=== PATIENT | male | born 1955 | race African-American/Black ===

== ENCOUNTER 2017-10-20 14:54 | Inpatient (IN) ==
--- NOTE | 2017-10-20 15:29 | ED ---
HPI General Chief complaint: Weakness Stated complaint: Medical Time Seen by Provider: 10/20/17 14:58 Source: EMS Mode of arrival: EMS History of Present Illness HPI narrative: Patient is a 62-year-old male who presents the emergency room [facility]) for evaluation of hypoglycemia. EMS reports that they were called to patient's house as patient had a hypoglycemic event yesterday. When patient becomes hypoglycemic, he becomes combative. When EMS arrived on scene yesterday, patient's blood sugar was 20, he was given glucose and his blood sugar improved. Reports that they are called on scene today as patient was combative, patient was found to have a blood sugar of 40. Patient was given amp of D10, blood sugar now 212. Patient reports that he is currently taking insulin, patient reports that he takes 2 types of insulin, patient cannot provide any further information. Patient with no other complaints at this time. Patient's family at bedside, reports that she takes 80 Units of Lantus nightly - he does have a script for SSI - does not use it Related Data Home Medications Medication Instructions Recorded Confirmed aspirin 81 mg PO DAILY 10/20/17 10/20/17 atorvastatin [Lipitor] 10 mg PO DAILY 10/20/17 10/20/17 enalapril maleate 5 mg PO DAILY 10/20/17 10/20/17 hydrochlorothiazide 50 mg PO DAILY 10/20/17 10/20/17 insulin glargine [Lantus U-100 80 unit SUB-Q HS 10/20/17 10/20/17 Insulin] metoprolol tartrate 50 mg PO DAILY 10/20/17 10/20/17 potassium chloride 10 meq PO DAILY 10/20/17 10/20/17 Allergies Allergy/AdvReac Type Severity Reaction Status Date / Time No Known Allergies Allergy Unverified 10/01/17 08:49 Review of Systems ROS: all other systems reviewed are negative [facility] Medical History Medical History Diabetes (Acute) Hypertension (Acute) Hypercholesterolemia (Acute) Stroke (Acute) Surgical History Surgical History No history of previous surgery (Acute) Social History Social History Substance History: No History of Abuse Second Hand Smoke Exposure: No Smoking Status: Former smoker How Often Do You Have a Drink Containing Alcohol: Never Recent Travel in [facility] within the Last 8 Weeks: No Recent Out of Country Travel within the Last 8 Weeks: No Exam Narrative Exam Narrative: GENERAL: NAD SKIN: Focused skin assessment warm/dry. HEAD: Atraumatic. Normocephalic. EYES: Pupils equal and round. No scleral icterus. No injection or drainage. ENT: No nasal bleeding or discharge. Mucous membranes pink and moist. NECK: Trachea midline. No JVD. CARDIOVASCULAR: Regular rate and rhythm. No murmur appreciated. RESPIRATORY: No accessory muscle use. Clear to auscultation. Breath sounds equal bilaterally. GASTROINTESTINAL: Abdomen soft, non-tender, nondistended. Hepatic and splenic margins not palpable. MUSCULOSKELETAL: No obvious deformities. No clubbing. No cyanosis. No edema. NEUROLOGICAL: Awake and alert. No obvious cranial nerve deficits. Motor grossly within normal limits. Normal speech. PSYCHIATRIC: Appropriate mood and affect; insight and judgment normal. Course Initial Documented Vital Signs Temperature 99.0 F 10/20/17 15:14 Pulse Rate 80 10/20/17 15:14 Respiratory Rate 16 10/20/17 15:14 Blood Pressure 163/83 H 10/20/17 15:14 Pulse Oximetry 99 10/20/17 15:14 Last Documented Vital Signs Temperature 99.0 F 10/20/17 15:14 Pulse Rate 96 H 10/20/17 17:50 Respiratory Rate 20 10/20/17 17:50 Blood Pressure 174/81 H 10/20/17 17:50 Pulse Oximetry 98 10/20/17 17:50 Medical Decision Making [facility] Narrative Medical decision making narrative: During the course of the patients emergency department visit, the patients history, examination, and differential diagnosis were reviewed with the patient. The patient was placed on a hospital monitor with oximetry and frequent blood pressure monitoring. The patient had an IV access obtained and blood work sent for analysis. BS now 100 It is concerning that patient administers his own insulin as patient cannot tell me his medication list or when he administers his medications. Overall, patient is a poor historian. patient BS on BMP is 442, now at 535pm - bp is 50 - I did order and amp of D50 Patient's potassium is 2.3 - iv as well as po potassium ordered Patient will require admission Case reviewed with Dr. Ramirez who accepts pt to his service for admission Medical Screen Exam Complete: Yes Emergency Medical Condition: Yes Differential Diagnosis Differential Diagnosis: Medication overdose, electrolyte abnormality, infection Medical Records Medical records reviewed: Yes I reviewed the patient's medical records. Lab Data Result diagrams: 10/20/17 15:45 10/20/17 15:45 Lab Results 10/20/17 10/20/17 10/20/17 Range/Units 15:45 15:45 17:34 WBC 16.0 H (4.0-11.0) th/mm3 RBC 4.63 (4.50-5.90) mil/mm3 Hgb 14.4 (13.0-17.0) gm/dL Hct 42.0 (39.0-51.0) % MCV 90.8 (80.0-100.0) fL MCH 31.1 (27.0-34.0) pg MCHC 34.2 (32.0-36.0) % RDW 14.2 (11.6-17.2) % Plt Count 164 (150-450) th/mm3 MPV 9.0 (7.0-11.0) fL Neut % (Auto) 91.5 H (16.0-70.0) % Lymph % (Auto) 4.2 L (9.0-44.0) % Kendall % (Auto) 4.2 (0.0-8.0) % Eos % (Auto) 0.0 (0.0-4.0) % Baso % (Auto) 0.1 (0.0-2.0) % Neut # (Auto) 14.6 H (1.8-7.7) th/mm3 Lymph # (Auto) 0.7 L (1.0-4.8) th/mm3 Kendall # (Auto) 0.7 (0.0-0.9) th/mm3 Eos # (Auto) 0.0 (0.0-0.4) th/mm3 Baso # (Auto) 0.0 (0.0-0.2) th/mm3 WBC Differential . Differential Comment Auto diff final Sodium 142 (136-145) meq/L Potassium 2.3 L* (3.5-5.1) meq/L Chloride 107 (98-107) meq/L Carbon Dioxide 25.7 (21.0-32.0) meq/L Anion Gap 9 (5-15) meq/L BUN 13 (7-18) mg/dL Creatinine 0.90 (0.60-1.30) mg/dL Estimated GFR Greater than 89 (>89) mL/min POC Glucose 50 L (68-110) mg/dl Random Glucose 442 H (74-106) mg/dL Calcium 6.1 L* (8.5-10.1) mg/dL Prot Corrected Calcium 7.0 L* (8.5-10.1) mg/dL Total Bilirubin 1.7 H (0.2-1.0) mg/dL AST 139 H (15-37) U/L ALT 28 (12-78) U/L Alkaline Phosphatase 48 (45-117) U/L Total Protein 5.2 L (6.4-8.2) g/dL Albumin 2.5 L (3.4-5.0) g/dL Beta-Hydroxybutyric Acd 0.16 (0.00-0.39) mmol/L 10/20/17 Range/Units 17:41 WBC (4.0-11.0) th/mm3 RBC (4.50-5.90) mil/mm3 Hgb (13.0-17.0) gm/dL Hct (39.0-51.0) % MCV (80.0-100.0) fL MCH (27.0-34.0) pg MCHC (32.0-36.0) % RDW (11.6-17.2) % Plt Count (150-450) th/mm3 MPV (7.0-11.0) fL Neut % (Auto) (16.0-70.0) % Lymph % (Auto) (9.0-44.0) % Kendall % (Auto) (0.0-8.0) % Eos % (Auto) (0.0-4.0) % Baso % (Auto) (0.0-2.0) % Neut # (Auto) (1.8-7.7) th/mm3 Lymph # (Auto) (1.0-4.8) th/mm3 Kendall # (Auto) (0.0-0.9) th/mm3 Eos # (Auto) (0.0-0.4) th/mm3 Baso # (Auto) (0.0-0.2) th/mm3 WBC Differential Differential Comment Sodium (136-145) meq/L Potassium (3.5-5.1) meq/L Chloride (98-107) meq/L Carbon Dioxide (21.0-32.0) meq/L Anion Gap (5-15) meq/L BUN (7-18) mg/dL Creatinine (0.60-1.30) mg/dL Estimated GFR (>89) mL/min POC Glucose 54 L (68-110) mg/dl Random Glucose (74-106) mg/dL Calcium (8.5-10.1) mg/dL Prot Corrected Calcium (8.5-10.1) mg/dL Total Bilirubin (0.2-1.0) mg/dL AST (15-37) U/L ALT (12-78) U/L Alkaline Phosphatase (45-117) U/L Total Protein (6.4-8.2) g/dL Albumin (3.4-5.0) g/dL Beta-Hydroxybutyric Acd (0.00-0.39) mmol/L Imaging Data Radiologist's impression: Head CT 10/20/17 15:59 CONCLUSION: 1. Large area of old left-sided infarct involving the left parietal lobe with Wallerian degeneration present within the temporal lobe and left cerebral peduncle. No acute abnormality is seen. . Discharge Plan Discharge Disposition Patient Disposition: 30 Still Patient Discharge Condition Condition: Fair Discharge Details Diagnosis: Hypoglycemia, Acute hypokalemia Physicians Team ED Provider: Sandra Ferguson Primary Care Provider: Victorina Velazquez Rxs /Orders / Referrals /Forms Prescriptions: No Action insulin glargine [Lantus U-100 Insulin] 100 unit/mL Solution 80 unit SUB-Q HS RF: 0 enalapril maleate 5 mg Tablet 5 mg PO DAILY RF: 0 atorvastatin [Lipitor] 10 mg Tablet 10 mg PO DAILY RF: 0 hydrochlorothiazide 50 mg Tablet 50 mg PO DAILY RF: 0 potassium chloride 10 mEq Tablet Extended Release 10 meq PO DAILY RF: 0 metoprolol tartrate 50 mg Tablet 50 mg PO DAILY RF: 0 aspirin 81 mg Tablet,Chewable 81 mg PO DAILY RF: 0 Status ED Status: With Doctor
[2017-10-20 16:35] LABS: Baso % (Auto) 0.1 % (0.0-2.0); Hemoglobin 14.4 gm/dL (13.0-17.0); Lymph # (Auto) 0.7 th/mm3 (1.0-4.8); Lymph % (Auto) 4.2 % (9.0-44.0); Mean Corpuscular HGB Conc 34.2 % (32.0-36.0); Mean Corpuscular Hemoglobin 31.1 pg (27.0-34.0); Mean Corpuscular Volume 90.8 fL (80.0-100.0); Mono # (Auto) 0.7 th/mm3 (0.0-0.9); Mono % (Auto) 4.2 % (0.0-8.0); Neut # (Auto) 14.6 th/mm3 (1.8-7.7); Neut % (Auto) 91.5 % (16.0-70.0); Platelet Count 164 th/mm3 (150-450); Red Blood Count 4.63 mil/mm3 (4.50-5.90); Red Cell Distribution Width 14.2 % (11.6-17.2)
--- NOTE | 2017-10-20 16:58 | CT ---
EXAM DATE: 10/20/2017 4:53 PM EDT AGE/SEX: 62 years / Male INDICATIONS: Altered mental status. CLINICAL DATA: This is the patient's initial encounter. Patient reports that signs and symptoms have been present for 1 day and indicates a pain score of Nonresponsive. MEDICAL/SURGICAL HISTORY: Diabetes. Hypertension. None. RADIATION DOSE: 56.35 CTDI (mGy) COMPARISON: No prior exams available for comparison. TECHNIQUE: CT of the head without contrast. Using automated exposure control and adjustment of the mA and/or kV according to patient size, radiation dose was kept as low as reasonably achievable to ob tain optimal diagnostic quality images. DICOM format image data is available electronically for revi ew and comparison. FINDINGS: Cerebrum: There is a large area of encephalomalacia involving the left parietal lobe and left insula with asymmetric dilation of the left lateral ventricle. The peripheral lizarraga matter appears intact. Posterior Fossa: There is wallerian degeneration involving the left temporal lobe and left cerebral peduncle. No evidence of acute abnormality within the posterior fossa. Extracranial: The visualized portion of the orbits is intact. Skull: The calvaria is intact. No evidence of skull fracture. CONCLUSION: 1. Large area of old left-sided infarct involving the left parietal lobe with Wallerian degeneration present within the temporal lobe and left cerebral peduncle. No acute abnormality is seen. . Electronically signed by: Gifty Horowitz MD 10/20/2017 4:57 PM EDT
[2017-10-20 17:24] LABS: Alanine Aminotransferase 28 U/L (12-78); Albumin 2.5 g/dL (3.4-5.0); Alkaline Phosphatase 48 U/L (45-117); Anion Gap 9 meq/L (5-15); Aspartate Aminotransferase 139 U/L (15-37); Beta Hydroxybutyric Acid 0.16 mmol/L (0.00-0.39); Blood Urea Nitrogen 13 mg/dL (7-18); Calcium 6.1 mg/dL (8.5-10.1); Carbon Dioxide 25.7 meq/L (21.0-32.0); Chloride 107 meq/L (98-107); Glomerular Filtration Rate Greater Than 89 mL/min (>89); Sodium 142 meq/L (136-145); Total Protein 5.2 g/dL (6.4-8.2)
[2017-10-20 17:29] LABS: Glucose,Random 442 mg/dL (74-106); Potassium 2.3 meq/L (3.5-5.1)
[2017-10-20] MEDS ORDERED: Potassium Chlor 20 mEq Premix 20 MEQ/100 ML PIGGYBACK IV.SIG ONE (17:30)
[2017-10-20] MEDS ORDERED: Dextrose 50% in Water 50 ML Vial IV.PUSH ONE (17:34)
[2017-10-20] MEDS ORDERED: KCL 20 mEq/D5W/NaCl 0.45% Inj 1,000 ML IV.CONT SCH (18:00)
[2017-10-20] MEDS ORDERED: Dextrose 50% in Water 50 ML Vial IV.PUSH PRN (18:13)
--- NOTE | 2017-10-20 18:17 | P.HPIM ---
History of Present Illness Primary Care Physician: Victorina Velazquez MD History of Present Illness: Mr. Russell is a 62 year old male. She has a history of diabetes mellitus type 2. She also has hypertension, hyperlipidemia, and a past history of CVA. At baseline he may have some degree of dementia. He has a friend who helps doses Lantus. He has had a previous hypoglycemic episode recently and has a repeat hypoglycemic episode today. Overdose of Lantus is a suspected etiology. It is uncertain how much Lantus this patient is getting. He is listed to have 80 units subcutaneous daily. Patient is unable to provide any clear history at this point. He is alert and oriented 1, etiology for this could be an underlying dementia or encephalopathy related to previous hyperglycemia that is lingering. Blood sugars are measured in the 40s today by EMS and had previously been as low as the 20s on previous episodes. - Diagnosis (1) Hypoglycemia (2) Acute hypokalemia (3) Diabetes (4) Hypertension Review of Systems Constitutional: No fevers, no chills no night sweats, no fatigue, weakness Eyes: No eye pain, no blurry vision, no loss of vision ENT: No sore throat, no ear pain, no rhinorrhea Cardiovascular: No chest pain, no tachycardia, no palpitations, no shortness of breath, syncope (related to hypoglycemia) Respiratory: No wheezing, no cough, no shortness of breath Gastrointestinal: No abdominal pain, no black tarry stools, no bright red blood per rectum, no vomiting, no diarrhea Musculoskeletal: No joint pain, no muscle cramps, no stiffness Integumentary: No rash, no ulcers, no drainage Neurologic: No sensory loss, no loss of motor function, no dizziness Psychiatric: No behavioral changes, no hallucinations, no suicidal ideations [facility] - History History Provided By: Patient - Medical History Medical History: Medical History (Last Updated 10/20/17 @ 15:29 by Loyda Spear) Diabetes (Acute) Hypertension (Acute) Hypercholesterolemia Stroke - Surgical History Surgical History: Surgical History (Last Reviewed 10/20/17 @ 15:27 by Sandra Ferguson) No history of previous surgery (Acute) - Family History Family History: Family History (Last Updated 10/20/17 @ 18:04 by Severo Ramirez MD) Other Osteoarthritis - Tobacco History Second Hand Smoke Exposure: No Smoking Status: Former smoker - Alcohol History How Often Do You Have a Drink Containing Alcohol: Never - Substance Use History Substance History: No History of Abuse - Travel History Recent Travel in the [place] Within the Last 8 Weeks: No Recent Travel Out of the Country Within the Last 8 Weeks: No - Immunization History Tetanus Immunization: Unsure Medications and Allergies Active Medications: Active Medications Al Hydroxide/Mg Hydroxide (Milk Of Magnradha Liq) 30 ml PO Q12H PRN PRN Reason: Mild Constipation Potassium Chloride (Kcl 20 Meq Premix Inj) 20 meq in 100 mls @ 50 mls/hr IV.SIG ONCE ONE Stop: 10/20/17 19:29 Potassium Chloride/Dextrose/Sod Cl (D5w/1/2ns + Kcl 20 Meq Inj) 1,000 mls @ 30 mls/hr IV.CONT .Q24H SOLO Ondansetron HCl (Zofran Inj) 4 mg IV.PUSH Q6H PRN PRN Reason: NAUSEA OR VOMITING Sodium Chloride (Ns Flush) 2 ml IV.FLUSH PRN PRN PRN Reason: FLUSH AFTER USING IV ACCESS Last Admin: 10/20/17 17:46 Dose: 2 ml Allergies Allergy/AdvReac Type Severity Reaction Status Date / Time No Known Allergies Allergy Unverified 10/01/17 08:49 Home Medications Medication Instructions Recorded Confirmed Type aspirin 81 mg PO DAILY 10/20/17 10/20/17 History atorvastatin [Lipitor] 10 mg PO DAILY 10/20/17 10/20/17 History enalapril maleate 5 mg PO DAILY 10/20/17 10/20/17 History hydrochlorothiazide 50 mg PO DAILY 10/20/17 10/20/17 History insulin glargine [Lantus U-100 80 unit SUB-Q HS 10/20/17 10/20/17 History Insulin] metoprolol tartrate 50 mg PO DAILY 10/20/17 10/20/17 History potassium chloride 10 meq PO DAILY 10/20/17 10/20/17 History Exam Vital signs: Vital Signs 10/20/17 15:14 10/20/17 15:17 10/20/17 15:29 Temperature 99.0 F Pulse Rate 80 76 77 Respiratory Rate 16 16 Blood Pressure 163/83 H 168/82 H Pulse Oximetry 99 100 10/20/17 17:50 Temperature Pulse Rate 96 H Respiratory Rate 20 Blood Pressure 174/81 H Pulse Oximetry 98 Intake & Output 10/19/17 10/20/17 10/20/17 18:59 06:59 18:59 Weight 81.647 kg Narrative: GENERAL: NAD, A&Ox1 HEAD: Normocephalic. NECK: Supple, trachea midline. No lymphadenopathy. EYES: No scleral icterus. No injection or drainage. CARDIOVASCULAR: Regular rate and rhythm without murmurs, gallops, or rubs. RESPIRATORY: Breath sounds equal bilaterally. No accessory muscle use. GASTROINTESTINAL: Abdomen soft, non-tender, nondistended. MUSCULOSKELETAL: No cyanosis, or edema. SKIN: Warm and dry. NEURO: No focal neurological deficits. Results - Labs CBC & Chem 7: 10/20/17 15:45 10/20/17 15:45 Labs: Short CBC 10/20/17 Range/Units 15:45 WBC 16.0 H (4.0-11.0) th/mm3 Hgb 14.4 (13.0-17.0) gm/dL Hct 42.0 (39.0-51.0) % Plt Count 164 (150-450) th/mm3 BMP 10/20/17 15:45 Sodium 142 Potassium 2.3 L* Chloride 107 Carbon Dioxide 25.7 BUN 13 Creatinine 0.90 Calcium 6.1 L* Liver Function 10/20/17 Range/Units 15:45 Total Bilirubin 1.7 H (0.2-1.0) mg/dL AST 139 H (15-37) U/L ALT 28 (12-78) U/L Alkaline Phosphatase 48 (45-117) U/L Albumin 2.5 L (3.4-5.0) g/dL - Imaging Impressions Head CT 10/20/17 15:59 CONCLUSION: 1. Large area of old left-sided infarct involving the left parietal lobe with Wallerian degeneration present within the temporal lobe and left cerebral peduncle. No acute abnormality is seen. . Caprini VTE Risk Assessment Caprini VTE Risk Assessment: No/Low Risk (score <= 1) Caprini Risk Assessment Model: Point Value = 1 Point Value = 2 Point Value = 3 Point Value = 5 Age 41-60 Minor surgery BMI > 25 kg/m2 Swollen legs Varicose veins or History of unexplained or recurrent spontaneous Oral contraceptives or hormone replacement Sepsis (< 1 month) Serious lung disease, including pneumonia (< 1 month) Abnormal pulmonary function Acute myocardial infarction Congestive heart failure (< 1 month) History of inflammatory bowel disease Medical patient at bed rest Age 61-74 Arthroscopic surgery Major open surgery (> 45 min) Laparoscopic surgery (> 45 min) Malignancy Confined to bed (> 72 hours) Immobilizing plaster cast Central venous access Age >= 75 History of VTE Family history of VTE Factor V Leiden Prothrombin [id number] Lupus anticoagulant Anticardiolipin antibodies Elevated serum homocysteine Heparin-induced thrombocytopenia Other congenital or acquired thrombophilia Stroke (< 1 month) Elective arthroplasty Hip, pelvis, or leg fracture Acute spinal cord injury (< 1 month) Prophylaxis Regimen: Total Risk Factor Score Risk Level Prophylaxis Regimen 0-1 Low Early ambulation 2 Moderate Order ONE of the following: *Sequential Compression Device (SCD) *Heparin 5000 units SQ BID 3-4 Higher Order ONE of the following medications: *Heparin 5000 units SQ TID *Enoxaparin/Lovenox 40 mg SQ daily (WT < 150 kg, CrCl > 30 mL/min) *Enoxaparin/Lovenox 30 mg SQ daily (WT < 150 kg, CrCl > 10-29 mL/min) *Enoxaparin/Lovenox 30 mg SQ BID (WT < 150 kg, CrCl > 30 mL/min) AND/OR *Sequential Compression Device (SCD) 5 or more Highest Order ONE of the following medications: *Heparin 5000 units SQ TID (Preferred with Epidurals) *Enoxaparin/Lovenox 40 mg SQ daily (WT < 150 kg, CrCl > 30 mL/min) *Enoxaparin/Lovenox 30 mg SQ daily (WT < 150 kg, CrCl > 10-29 mL/min) *Enoxaparin/Lovenox 30 mg SQ BID (WT < 150 kg, CrCl > 30 mL/min) AND *Sequential Compression Device (SCD) Assessment and Plan - Assessment (1) Hypoglycemia Code(s): E16.2 - Hypoglycemia, unspecified Status: Acute (2) Acute hypokalemia Code(s): E87.6 - Hypokalemia Status: Acute (3) Diabetes Code(s): E11.9 - Type 2 diabetes mellitus without complications Status: Acute (4) Hypertension Code(s): I10 - Essential (primary) hypertension Status: Acute - Plan 62-year-old male admitted secondary to hypoglycemia with acute hypokalemia Acute hypoglycemia This appears to be overdosed Lantus Once blood sugars stabilize Lantus could be resumed with a 25-50% cut from his baseline of 80 units nightly D5 IV overnight Follow blood sugars Resume treatment at lower doses once blood sugars stabilize Encephalopathy Possible underlying dementia Placement may be needed if not improved Supportive care Monitor for improvement Hypertension Continue baseline treatment Follow blood pressures Adjust treatments as needed Hyperlipidemia Continue present treatment Follow as an outpatient Diabetes mellitus type 2 Follow blood sugars Insulin sliding scale Diabetic diet Hx of CVA No acute changes follow clinically DVT Prophylaxis SCDs
[2017-10-20 18:28] LABS: Bilirubin,Urine Negative (Negative); Clarity,Urine Hazy (Clear); Color,Urine Yellow (Yellw/Straw); Glucose,Urine (UA) 50 mg/dL (Negative); Leukocyte Esterase,Urine Negative (Negative); Nitrite,Urine Negative (Negative); Specific Gravity,Urine 1.024 (1.002-1.035)
--- NOTE | 2017-10-20 18:32 | XR ---
EXAM DATE: 10/20/2017 6:29 PM EDT AGE/SEX: 62 years / Male INDICATIONS: Syncope. CLINICAL DATA: This is the patient's initial encounter. Patient reports that signs and symptoms have been present for 1 day and indicates a pain score of 0/10. MEDICAL/SURGICAL HISTORY: Stroke. Diabetes. Hypertension. None. COMPARISON: No prior exams available for comparison. FINDINGS: A single AP view of the chest demonstrates the lungs to be symmetrically aerated without evidence of mass, infiltrate or effusion. The cardiomediastinal contours are unremarkable. There is elevation o f the right hemidiaphragm. Osseous structures are intact. CONCLUSION: 1. No acute cardiopulmonary disease. 2. Elevation of the right hemidiaphragm. Electronically signed by: Bishop Andrew MD 10/20/2017 6:31 PM EDT
[2017-10-21] MEDS: Insulin NovoLOG Aspart Correctional Sugar Inj SQ SCH ×5 (02:48→21:01)
[2017-10-21] MEDS: Metoprolol Tartrate 50 MG Tablet PO SCH (09:30)
[2017-10-21 10:17] LABS: Baso % (Auto) 0.1 % (0.0-2.0); Eos % (Auto) 0.3 % (0.0-4.0); Hematocrit 42.3 % (39.0-51.0); Hemoglobin 14.5 gm/dL (13.0-17.0); Lymph # (Auto) 0.9 th/mm3 (1.0-4.8); Lymph % (Auto) 6.4 % (9.0-44.0); Mean Corpuscular HGB Conc 34.2 % (32.0-36.0); Mean Corpuscular Hemoglobin 31.1 pg (27.0-34.0); Mono # (Auto) 0.8 th/mm3 (0.0-0.9); Mono % (Auto) 5.6 % (0.0-8.0); Neut % (Auto) 87.6 % (16.0-70.0); Platelet Count 166 th/mm3 (150-450); Red Blood Count 4.65 mil/mm3 (4.50-5.90); Red Cell Distribution Width 14.3 % (11.6-17.2); White Blood Count 14.8 th/mm3 (4.0-11.0)
--- NOTE | 2017-10-21 10:29 | P.PN ---
Subjective Interval history: Follow-up for hypoglycemia: Patient awake, alert and oriented 2, expressive aphasia, history of CVA. Patient is unclear about his medications, indicates that someone assist him at home. Denies any chest pain, no shortness of breath. Blood sugars have improved overnight, lowest one was 40 most recent 127. Patient on D5 with potassium. Physical Exam Vital signs: Vital Signs 10/20/17 15:14 10/20/17 15:17 10/20/17 15:29 Temperature 99.0 F Pulse Rate 80 76 77 Respiratory Rate 16 16 Blood Pressure 163/83 H 168/82 H Pulse Oximetry 99 100 10/20/17 17:50 10/20/17 19:34 10/20/17 20:00 Temperature 98.4 F 98.4 F Pulse Rate 96 H 75 86 Respiratory Rate 20 20 20 Blood Pressure 174/81 H 187/87 H 179/101 H Pulse Oximetry 98 100 95 10/20/17 21:00 10/20/17 23:35 10/21/17 07:01 Temperature 98.1 F Pulse Rate 79 85 89 Respiratory Rate 20 Blood Pressure 167/88 H Pulse Oximetry 100 10/21/17 08:35 Temperature 98.2 F Pulse Rate 91 H Respiratory Rate 18 Blood Pressure 172/88 H Pulse Oximetry 97 Intake & Output 10/20/17 10/21/17 10/21/17 18:59 06:59 18:59 Intake Total 600 / 600 Balance 600 / 600 Weight 81.647 kg Intake: Oral 600 / 600 Other: # Voids 2 Weight On Admission 81.647 kg Narrative: GENERAL: Well-nourished, well-developed patient in no apparent distress. SKIN: Warm and dry. HEAD: Atraumatic. Normocephalic. EYES: Pupils equal and round. No scleral icterus. No injection or drainage. ENT: No nasal bleeding or discharge. Mucous membranes pink and moist. NECK: Trachea midline. No JVD. CARDIOVASCULAR: Regular rate and rhythm. RESPIRATORY: No accessory muscle use. Clear to auscultation. Breath sounds equal bilaterally. GASTROINTESTINAL: Abdomen soft, non-tender, nondistended. Hepatic and splenic margins not palpable. MUSCULOSKELETAL: Right wrist contracted. Right upper extremity hemiparesis from prior stroke. No joint abnormality. Bilateral pedal pulses 2+, no edema. NEUROLOGICAL: Awake, oriented to self and place. Expressive aphasia, speech mildly dysarthric. History of stroke. Right upper extremity hemiparesis. PSYCHIATRIC: Appropriate mood and affect; insight and judgment normal. Results - Labs CBC & Chem 7: 10/21/17 08:43 10/21/17 08:43 Laboratory Results - last 24 hr 10/20/17 10/20/17 10/20/17 15:45 15:45 17:34 WBC 16.0 H RBC 4.63 Hgb 14.4 Hct 42.0 MCV 90.8 MCH 31.1 MCHC 34.2 RDW 14.2 Plt Count 164 MPV 9.0 Neut % (Auto) 91.5 H Lymph % (Auto) 4.2 L Hayes % (Auto) 4.2 Eos % (Auto) 0.0 Baso % (Auto) 0.1 Neut # (Auto) 14.6 H Lymph # (Auto) 0.7 L Hayes # (Auto) 0.7 Eos # (Auto) 0.0 Baso # (Auto) 0.0 WBC Differential . Differential Comment Auto diff final Sodium 142 Potassium 2.3 L* Chloride 107 Carbon Dioxide 25.7 Anion Gap 9 BUN 13 Creatinine 0.90 Estimated GFR Greater than 89 POC Glucose 50 L Random Glucose 442 H Calcium 6.1 L* Prot Corrected Calcium 7.0 L* Total Bilirubin 1.7 H AST 139 H ALT 28 Alkaline Phosphatase 48 Total Protein 5.2 L Albumin 2.5 L Beta-Hydroxybutyric Acd 0.16 Urine Color Urine Clarity Urine pH Ur Specific [place] Urine Protein Urine Glucose (UA) Urine Ketones Urine Occult Blood Urine Nitrate Urine Bilirubin Urine Urobilinogen Ur Leukocyte Esterase Urine RBC Urine WBC Granular Casts Micro UA Comment Ur Microscopic Review Urine Culture Comments 10/20/17 10/20/17 10/20/17 17:40 17:41 18:29 WBC RBC Hgb Hct MCV MCH MCHC RDW Plt Count MPV Neut % (Auto) Lymph % (Auto) Hayes % (Auto) Eos % (Auto) Baso % (Auto) Neut # (Auto) Lymph # (Auto) Hayes # (Auto) Eos # (Auto) Baso # (Auto) WBC Differential Differential Comment Sodium Potassium Chloride Carbon Dioxide Anion Gap BUN Creatinine Estimated GFR POC Glucose 54 L 108 Random Glucose Calcium Prot Corrected Calcium Total Bilirubin AST ALT Alkaline Phosphatase Total Protein Albumin Beta-Hydroxybutyric Acd Urine Color Yellow Urine Clarity Hazy H Urine pH 5.0 Ur Specific [place] 1.024 Urine Protein 100 H Urine Glucose (UA) 50 Urine Ketones Trace H Urine Occult Blood Large H Urine Nitrate Negative Urine Bilirubin Negative Urine Urobilinogen 2.0 H Ur Leukocyte Esterase Negative Urine RBC 1 Urine WBC 5 Granular Casts 12 Micro UA Comment Culture not ind Ur Microscopic Review Not Reportable Urine Culture Comments Culture not ind 10/20/17 10/20/17 10/20/17 21:17 21:28 22:10 WBC RBC Hgb Hct MCV MCH MCHC RDW Plt Count MPV Neut % (Auto) Lymph % (Auto) Hayes % (Auto) Eos % (Auto) Baso % (Auto) Neut # (Auto) Lymph # (Auto) Hayes # (Auto) Eos # (Auto) Baso # (Auto) WBC Differential Differential Comment Sodium Potassium 3.1 L D Chloride Carbon Dioxide Anion Gap BUN Creatinine Estimated GFR POC Glucose 40 L* 95 Random Glucose Calcium Prot Corrected Calcium Total Bilirubin AST ALT Alkaline Phosphatase Total Protein Albumin Beta-Hydroxybutyric Acd Urine Color Urine Clarity Urine pH Ur Specific [place] Urine Protein Urine Glucose (UA) Urine Ketones Urine Occult Blood Urine Nitrate Urine Bilirubin Urine Urobilinogen Ur Leukocyte Esterase Urine RBC Urine WBC Granular Casts Micro UA Comment Ur Microscopic Review Urine Culture Comments 10/21/17 10/21/17 10/21/17 04:25 08:30 08:43 WBC 14.8 H RBC 4.65 Hgb 14.5 Hct 42.3 MCV 91.0 MCH 31.1 MCHC 34.2 RDW 14.3 Plt Count 166 MPV 9.0 Neut % (Auto) 87.6 H Lymph % (Auto) 6.4 L Hayes % (Auto) 5.6 Eos % (Auto) 0.3 Baso % (Auto) 0.1 Neut # (Auto) 13.0 H Lymph # (Auto) 0.9 L Hayes # (Auto) 0.8 Eos # (Auto) 0.0 Baso # (Auto) 0.0 WBC Differential . Differential Comment Auto diff final Sodium Potassium Chloride Carbon Dioxide Anion Gap BUN Creatinine Estimated GFR POC Glucose 127 H 168 H Random Glucose Calcium Prot Corrected Calcium Total Bilirubin AST ALT Alkaline Phosphatase Total Protein Albumin Beta-Hydroxybutyric Acd Urine Color Urine Clarity Urine pH Ur Specific [place] Urine Protein Urine Glucose (UA) Urine Ketones Urine Occult Blood Urine Nitrate Urine Bilirubin Urine Urobilinogen Ur Leukocyte Esterase Urine RBC Urine WBC Granular Casts Micro UA Comment Ur Microscopic Review Urine Culture Comments - Imaging Impressions Head CT 10/20/17 15:59 CONCLUSION: 1. Large area of old left-sided infarct involving the left parietal lobe with Wallerian degeneration present within the temporal lobe and left cerebral peduncle. No acute abnormality is seen. . Chest X-Ray 10/20/17 17:33 CONCLUSION: 1. No acute cardiopulmonary disease. 2. Elevation of the right hemidiaphragm. Assessment and Plan - Assessment (1) History of CVA with residual deficit Code(s): I69.30 - Unspecified sequelae of cerebral infarction Status: Acute (2) Hypoglycemia Code(s): E16.2 - Hypoglycemia, unspecified Status: Acute (3) Acute hypokalemia Code(s): E87.6 - Hypokalemia Status: Acute (4) Diabetes Code(s): E11.9 - Type 2 diabetes mellitus without complications Status: Acute - Plan 62-year-old male admitted secondary to hypoglycemia with acute hypokalemia Acute hypoglycemia This appears to be overdosed Lantus Once blood sugars stabilize Lantus could be resumed with a 25-50% cut from his baseline of 80 units nightly Blood sugars stabilizing, most recent 127 -Blood sugars increasing, DC IVF -Follow blood sugars -Accu-Cheks before meals and at bedtime with low-dose insulin therapy. Acute hypokalemia -K 2.8, will replace and repeat later today Encephalopathy Possible underlying dementia History of CVA, expressive aphasia. Patient appears back to baseline. 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
--- NOTE | 2017-10-21 10:29 | P.DCO ---
- Diagnosis (4) Diabetes - Home Health Nursing Order: Medical education, Diabetic education, Medication education-adverse effect - Case Management Consult Yes - Certification I have seen patient Kareem Russell on 10/21/17. My clinical findings support the need for the requested home health care services because: Hypoglycemia, history of CVA with expressive aphasia. 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
[2017-10-21 10:59] LABS: Alanine Aminotransferase 33 U/L (12-78); Albumin 3.1 g/dL (3.4-5.0); Alkaline Phosphatase 65 U/L (45-117); Anion Gap 10 meq/L (5-15); Aspartate Aminotransferase 126 U/L (15-37); Blood Urea Nitrogen 13 mg/dL (7-18); Calcium 8.6 mg/dL (8.5-10.1); Carbon Dioxide 29.8 meq/L (21.0-32.0); Chloride 103 meq/L (98-107); Glomerular Filtration Rate 81 mL/min (>89); Glucose,Random 152 mg/dL (74-106); Sodium 143 meq/L (136-145); Total Protein 6.6 g/dL (6.4-8.2)
[2017-10-21 11:07] LABS: Potassium 2.8 meq/L (3.5-5.1)
[2017-10-21] MEDS ORDERED: Potassium Chlor 10 mEq Premix 10 MEQ/100 ML PIGGYBACK IV.SIG ONE (12:00)
[2017-10-21] MEDS ORDERED: Potassium Chloride 25 MEQ Effervescent Tablet PO ONE (16:38)
[2017-10-22 08:48] LABS: Hematocrit 41.2 % (39.0-51.0); Mean Corpuscular HGB Conc 33.9 % (32.0-36.0); Mean Corpuscular Hemoglobin 30.8 pg (27.0-34.0); Mean Platelet Volume 8.7 fL (7.0-11.0); Platelet Count 148 th/mm3 (150-450); Red Blood Count 4.53 mil/mm3 (4.50-5.90); Red Cell Distribution Width 14.3 % (11.6-17.2); White Blood Count 15.9 th/mm3 (4.0-11.0)
[2017-10-22 09:11] LABS: Calcium 8.3 mg/dL (8.5-10.1); Carbon Dioxide 30.8 meq/L (21.0-32.0)
[2017-10-22 09:17] LABS: Potassium 2.8 meq/L (3.5-5.1)
[2017-10-22] MEDS: Insulin NovoLOG Aspart Correctional Sugar Inj SQ SCH ×4 (09:39→20:37)
[2017-10-22] MEDS: Metoprolol Tartrate 50 MG Tablet PO SCH (09:39)
--- NOTE | 2017-10-22 10:31 | P.PN ---
Subjective Interval history: Follow-up for hypoglycemia: Patient awake, alert and oriented 2, expressive aphasia, history of CVA. No nausea, no vomiting, no diarrhea. Denies abdominal pain. Slept well overnight. Blood sugars to 75. Physical Exam Vital signs: Vital Signs 10/21/17 11:55 10/21/17 15:49 10/21/17 19:33 Temperature 98.7 F 98.1 F 98.9 F Pulse Rate 84 90 95 H Respiratory Rate 16 16 16 Blood Pressure 167/80 H 180/81 H 155/76 H Pulse Oximetry 100 100 98 10/22/17 00:00 10/22/17 02:34 10/22/17 03:54 Temperature 98.3 F 98.5 F Pulse Rate 98 H 92 H Respiratory Rate 16 16 Blood Pressure 167/86 H 148/75 H 149/79 H Pulse Oximetry 98 97 10/22/17 05:50 10/22/17 08:00 Temperature 97.4 F L Pulse Rate 107 H Respiratory Rate 16 Blood Pressure 150/71 H 168/83 H Pulse Oximetry 96 Intake & Output 10/21/17 10/22/17 10/22/17 18:59 06:59 18:59 Intake Total 677 / 677 Output Total 250 / 250 Balance 427 / 427 Intake: IV 677 / 677 D5W/1/2NS + KCL 20 mEq Inj 1, 577 / 577 000 ML @ 30 mls/hr IV.CONT . [facility] Rx#:[id number] KCl 10 mEq Premix Inj 10 meq In 100 / 100 100 ml @ 100 mls/hr IV.SIG ONCE ONE Rx#:[id number] Output: Urine 250 / 250 Other: # Voids 2 Narrative: GENERAL: Well-nourished, well-developed patient in no apparent distress. SKIN: Warm and dry. HEAD: Atraumatic. Normocephalic. EYES: Pupils equal and round. No scleral icterus. No injection or drainage. ENT: No nasal bleeding or discharge. Mucous membranes pink and moist. NECK: Trachea midline. No JVD. CARDIOVASCULAR: Regular rate and rhythm. RESPIRATORY: No accessory muscle use. Clear to auscultation. Breath sounds equal bilaterally. GASTROINTESTINAL: Abdomen soft, non-tender, nondistended. Hepatic and splenic margins not palpable. MUSCULOSKELETAL: Right wrist contracted. Right upper extremity hemiparesis from prior stroke. No joint abnormality. Bilateral pedal pulses 2+, no edema. NEUROLOGICAL: awakes to voice, oriented to self and place. Expressive aphasia, speech mildly dysarthric. History of stroke. Right upper extremity hemiparesis. PSYCHIATRIC: Appropriate mood and affect; insight and judgment normal. Results - Labs CBC & Chem 7: 10/22/17 07:52 10/22/17 07:52 Laboratory Results - last 24 hr 10/21/17 10/21/17 10/21/17 08:43 12:08 15:55 WBC RBC Hgb Hct MCV MCH MCHC RDW Plt Count MPV Sodium 143 Potassium 2.8 L* 3.4 L Chloride 103 Carbon Dioxide 29.8 Anion Gap 10 BUN 13 Creatinine 1.12 Estimated GFR 81 L POC Glucose 249 H Random Glucose 152 H D Calcium 8.6 D Total Bilirubin 2.9 H AST 126 H ALT 33 Alkaline Phosphatase 65 Total Protein 6.6 D Albumin 3.1 L D 10/21/17 10/21/17 10/22/17 17:17 20:45 07:52 WBC 15.9 H RBC 4.53 Hgb 14.0 Hct 41.2 MCV 91.0 MCH 30.8 MCHC 33.9 RDW 14.3 Plt Count 148 L MPV 8.7 Sodium Potassium Chloride Carbon Dioxide Anion Gap BUN Creatinine Estimated GFR POC Glucose 216 H 275 H Random Glucose Calcium Total Bilirubin AST ALT Alkaline Phosphatase Total Protein Albumin 10/22/17 10/22/17 07:52 08:39 WBC RBC Hgb Hct MCV MCH MCHC RDW Plt Count MPV Sodium 136 Potassium 2.8 L* Chloride 97 L Carbon Dioxide 30.8 Anion Gap 8 BUN 18 Creatinine 1.26 Estimated GFR 70 L POC Glucose 183 H Random Glucose 195 H Calcium 8.3 L Total Bilirubin AST ALT Alkaline Phosphatase Total Protein Albumin Assessment and Plan - Assessment (1) History of CVA with residual deficit Code(s): I69.30 - Unspecified sequelae of cerebral infarction Status: Acute (2) Hypoglycemia Code(s): E16.2 - Hypoglycemia, unspecified Status: Acute (3) Acute hypokalemia Code(s): E87.6 - Hypokalemia Status: Acute (4) Diabetes Code(s): E11.9 - Type 2 diabetes mellitus without complications Status: Acute - Plan 62-year-old male admitted secondary to hypoglycemia with acute hypokalemia Acute hypoglycemia This appears to be overdosed Lantus Once blood sugars stabilize Lantus could be resumed with a 25-50% cut from his baseline of 80 units nightly Blood sugars stabilizing, most recent 127 -Follow blood sugars -Accu-Cheks before meals and at bedtime with low-dose insulin therapy. Acute hypokalemia Possibly secondary to diuretics -Potassium is 2.8 again, will start on potassium 40 Meq q. p.o. twice daily. Will give KCl bolus 10 Meq 2. Repeat potassium level at 2pm Leukocytosis, etiology unclear. No fever. No evidence of infection. Possibly secondary to stress response from hypoglycemia -Follow CBC Encephalopathy Possible underlying dementia History of CVA, expressive aphasia. Patient appears back to baseline. -Consult physical therapy for evaluation We will consult case management for discharge planning, home health care versus SNF if needed -Consult ST for cognitive eval. Hypertension BP elevated -Continue home medications-Vasotec, BB, HCTZ -Clonidine PRN Hyperlipidemia -Continue home meds Diabetes mellitus type 2 Blood sugars trending up, to 75. -Follow blood sugars -Insulin sliding scale -Diabetic diet -We will restart Lantus at 40 units nightly Hx of CVA -PT eval and tx DVT Prophylaxis SCDs PT evaluation today Case management for discharge planning, home health care vs SNF Pt. 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
[2017-10-22] MEDS: Potassium Chlor 10 mEq Premix 10 MEQ/100 ML PIGGYBACK IV.SIG SCH ×2 (10:43→12:33)
--- NOTE | 2017-10-22 12:27 | ECG ---
Date Performed: 10/20/2017 Time Performed: 15:38:41 PTAGE: 62 years EKG: Sinus rhythm NONSPECIFIC T-WAVE ABNORMALITY BORDERLINE ECG LVH by voltage Compared to PREVIOUS TRACING T wave inversion in the inferolateral leads has improved PREVIOUS SOURAV N06/23/1998 10.20 DOCTOR: Gonzalez Ch Interpretating Date/Time 10/22/2017 12:27:19
[2017-10-22] MEDS ORDERED: Potassium Chloride 25 MEQ Effervescent Tablet PO ONE (16:20)
[2017-10-23 05:02] LABS: Hematocrit 40.8 % (39.0-51.0); Hemoglobin 13.9 gm/dL (13.0-17.0); Mean Corpuscular HGB Conc 34.1 % (32.0-36.0); Mean Corpuscular Hemoglobin 30.9 pg (27.0-34.0); Mean Corpuscular Volume 90.4 fL (80.0-100.0); Mean Platelet Volume 8.7 fL (7.0-11.0); Platelet Count 156 th/mm3 (150-450); Red Blood Count 4.52 mil/mm3 (4.50-5.90); Red Cell Distribution Width 13.8 % (11.6-17.2); White Blood Count 19.1 th/mm3 (4.0-11.0)
[2017-10-23 05:14] LABS: Calcium 8.3 mg/dL (8.5-10.1); Carbon Dioxide 31.1 meq/L (21.0-32.0); Magnesium 2.1 mg/dL (1.5-2.5); Potassium 3.1 meq/L (3.5-5.1)
[2017-10-23] MEDS: Metoprolol Tartrate 50 MG Tablet PO SCH (08:25)
[2017-10-23] MEDS: Insulin NovoLOG Aspart Correctional Sugar Inj SQ SCH ×4 (09:33→21:20)
--- NOTE | 2017-10-23 12:03 | P.PNIM ---
Subjective Interval history: Mr. Russell is a 62 year old male. She has a history of diabetes mellitus type 2. She also has hypertension, hyperlipidemia, and a past history of CVA. At baseline he may have some degree of dementia. He has a friend who helps doses Lantus. He has had a previous hypoglycemic episode recently and has a repeat hypoglycemic episode today. Overdose of Lantus is a suspected etiology. It is uncertain how much Lantus this patient is getting. He is listed to have 80 units subcutaneous daily. Patient is unable to provide any clear history at this point. He is alert and oriented 1, etiology for this could be an underlying dementia or encephalopathy related to previous hyperglycemia that is lingering. Blood sugars are measured in the 40s today by EMS and had previously been as low as the 20s on previous episodes. 9-8 Follow-up for hypoglycemia: Patient awake, alert and oriented 2, expressive aphasia, history of CVA. Patient is unclear about his medications, indicates that someone assist him at home. Denies any chest pain, no shortness of breath. Blood sugars have improved overnight, lowest one was 40 most recent 127. Patient on D5 with potassium. 9-9 Follow-up for hypoglycemia: Patient awake, alert and oriented 2, expressive aphasia, history of CVA. No nausea, no vomiting, no diarrhea. Denies abdominal pain. Slept well overnight. Blood sugars to 75. 9-10 having uncontrolled blood pressure and fevers today DW RN AND PT PATIENT HAS APHASIA WATCH SUGARS ADJUST BP MEDS HAVING FEVERS, BC AND UA AND CHEST XRAY SPEECH EVAL FOR SWALLOW Physical Exam Vital signs: Vital Signs 10/22/17 12:00 10/22/17 16:00 10/22/17 18:56 Temperature 98.9 F 98.9 F 99.2 F Pulse Rate 83 82 89 Respiratory Rate 18 18 20 Blood Pressure 160/77 H 167/81 H 182/87 H Pulse Oximetry 95 95 98 10/22/17 20:00 10/23/17 00:00 10/23/17 04:00 Temperature 99.1 F 98.4 F 98.0 F Pulse Rate 88 82 77 Respiratory Rate 18 16 18 Blood Pressure 187/90 H 155/74 H 153/79 H Pulse Oximetry 99 96 97 10/23/17 08:00 Temperature 99.5 F Pulse Rate 85 Respiratory Rate 19 Blood Pressure 170/78 H Pulse Oximetry 96 Intake & Output 10/22/17 10/23/17 10/23/17 18:59 06:59 18:59 Intake Total 800 / 800 480 / 480 Output Total 1400 / 1400 500 / 500 Balance -600 / -600 -20 / -20 Weight 73.4 kg 74.4 kg Intake: IV 200 / 200 KCl 10 mEq Premix Inj 10 meq In 200 / 200 100 ml @ 100 mls/hr IV.SIG Q1H [facility] Rx#:[id number] Oral 600 / 600 480 / 480 Output: Urine 1400 / 1400 500 / 500 Other: # Voids 2 Date of Last Bowel Movement 10/22/17 # Bowel Movements 1 0 # Incontinent Bowel Movements 1 Narrative: GENERAL: Well-nourished, well-developed patient in no apparent distress. SKIN: Warm and dry. HEAD: Atraumatic. Normocephalic. EYES: Pupils equal and round. No scleral icterus. No injection or drainage. ENT: No nasal bleeding or discharge. Mucous membranes pink and moist. NECK: Trachea midline. No JVD. CARDIOVASCULAR: Regular rate and rhythm. RESPIRATORY: No accessory muscle use. Clear to auscultation. Breath sounds equal bilaterally. GASTROINTESTINAL: Abdomen soft, non-tender, nondistended. Hepatic and splenic margins not palpable. MUSCULOSKELETAL: Right wrist contracted. Right upper extremity hemiparesis from prior stroke. No joint abnormality. Bilateral pedal pulses 2+, no edema. NEUROLOGICAL: awakes to voice, oriented to self and place. Expressive aphasia, speech mildly dysarthric. History of stroke. Right upper extremity hemiparesis. PSYCHIATRIC: Appropriate mood and affect; insight and judgment normal. Results - Labs CBC & Chem 7: 10/23/17 04:45 10/23/17 04:45 Laboratory Results - last 24 hr 10/22/17 10/22/17 10/22/17 12:17 14:47 17:17 WBC RBC Hgb Hct MCV MCH MCHC RDW Plt Count MPV Sodium Potassium 3.2 L Chloride Carbon Dioxide Anion Gap BUN Creatinine Estimated GFR POC Glucose 240 H 224 H Random Glucose Calcium Magnesium 10/22/17 10/23/17 10/23/17 20:36 04:45 04:45 WBC 19.1 H RBC 4.52 Hgb 13.9 Hct 40.8 MCV 90.4 MCH 30.9 MCHC 34.1 RDW 13.8 Plt Count 156 MPV 8.7 Sodium 136 Potassium 3.1 L Chloride 95 L Carbon Dioxide 31.1 Anion Gap 10 BUN 20 H Creatinine 1.26 Estimated GFR 70 L POC Glucose 227 H Random Glucose 251 H Calcium 8.3 L Magnesium 2.1 10/23/17 07:27 WBC RBC Hgb Hct MCV MCH MCHC RDW Plt Count MPV Sodium Potassium Chloride Carbon Dioxide Anion Gap BUN Creatinine Estimated GFR POC Glucose 219 H Random Glucose Calcium Magnesium - Imaging Head CT 10/20/17 15:59 CONCLUSION: 1. Large area of old left-sided infarct involving the left parietal lobe with Wallerian degeneration present within the temporal lobe and left cerebral peduncle. No acute abnormality is seen. . Chest X-Ray 10/20/17 17:33 CONCLUSION: 1. No acute cardiopulmonary disease. 2. Elevation of the right hemidiaphragm. - Procedures NONE Assessment and Plan - Assessment (1) History of CVA with residual deficit Code(s): I69.30 - Unspecified sequelae of cerebral infarction Status: Acute (2) Hypoglycemia Code(s): E16.2 - Hypoglycemia, unspecified Status: Acute (3) Acute hypokalemia Code(s): E87.6 - Hypokalemia Status: Acute (4) Diabetes Code(s): E11.9 - Type 2 diabetes mellitus without complications Status: Acute - Plan 62-year-old male admitted secondary to hypoglycemia with acute hypokalemia Acute hypoglycemia This appears to be overdosed Lantus Once blood sugars stabilize Lantus could be resumed with a 25-50% cut from his baseline of 80 units nightly Blood sugars stabilizing, most recent 127 -Follow blood sugars -Accu-Cheks before meals and at bedtime with low-dose insulin therapy. Acute hypokalemia Possibly secondary to diuretics -Potassium is 2.8 again, will start on potassium 40 Meq q. p.o. twice daily. Will give KCl bolus 10 Meq 2. Repeat potassium level at 2pm REPLACE AGAIN AM LABS Leukocytosis, etiology unclear. No fever. No evidence of infection. Possibly secondary to stress response from hypoglycemia -Follow CBC TRENDING UP HAD FEVERS TODAY, CHEST XRAY, UA WITH C+S AND BLOOD CULTURES TYLENOL Encephalopathy Possible underlying dementia History of CVA, expressive aphasia. Patient appears back to baseline. -Consult physical therapy for evaluation We will consult case management for discharge planning, home health care versus SNF if needed -Consult ST for cognitive eval. ST FOR POSSIBLE ASPIRATION Hypertension BP elevated -Continue home medications-Vasotec, BB, HCTZ -Clonidine PRN Hyperlipidemia -Continue home meds Diabetes mellitus type 2 Blood sugars trending up, to 75. -Follow blood sugars -Insulin sliding scale -Diabetic diet -We will restart Lantus at 40 units nightly Hx of CVA -PT eval and tx DVT Prophylaxis SCDs FEVERS CHECK UA AND CHEST XRAY AND BLOOD CULTURES PT evaluation today Case management for discharge planning, home health care vs SNF Pt. 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
[2017-10-23] MEDS ORDERED: Aluminum/Magnesium/Simethacone Susp 30 ML UDC PO PRN (12:04)
[2017-10-23] MEDS ORDERED: Docusate Sodium 100 MG Capsule PO PRN (12:04)
[2017-10-23] MEDS ORDERED: Vancomycin Consult Pharmacy OTHER PRN (12:05)
[2017-10-23] MEDS ORDERED: Vancomycin Inj 1,000 MG in Sodium Chlor 0.9% Inj 250 ML IV.SIG ONE (12:05)
[2017-10-23] MEDS ORDERED: Vancomycin Consult Pharmacy 1 EACH OTHER SCH (12:15)
[2017-10-23] MEDS: Acetaminophen 325 MG Tablet PO PRN (12:41)
--- NOTE | 2017-10-23 13:32 | XR ---
EXAM DATE: 10/23/2017 1:29 PM EDT AGE/SEX: 62 years / Male INDICATIONS: . Fever. CLINICAL DATA: This is the patient's initial encounter. Patient reports that signs and symptoms have been present for 1 day and indicates a pain score of 0/10. MEDICAL/SURGICAL HISTORY: . Stroke. Diabetes. Hypertension. None. COMPARISON: [facility] [place], CHEST 1V SINGLE AP, 10/20/2017. . FINDINGS: PA and lateral views of the chest demonstrate the lungs to be symmetrically aerated without evidence of mass, infiltrate or effusion. The cardiomediastinal contours are unremarkable. Osseous structures are intact. CONCLUSION: No evidence of acute cardiopulmonary process. Electronically signed by: Rui Robledo MD 10/23/2017 1:30 PM EDT
[2017-10-23 14:12] LABS: Bilirubin,Urine Negative (Negative); Clarity,Urine Clear (Clear); Color,Urine Yellow (Yellw/Straw); Glucose,Urine (UA) 500 or Greater mg/dL (Negative); Leukocyte Esterase,Urine Negative (Negative); Nitrite,Urine Negative (Negative); Specific Gravity,Urine 1.013 (1.002-1.035); Squamous Epithelial Cell,Urine <1 /hpf (0-5); Urobilinogen,Urine 4 or Greater mg/dL (Less than 2)
[2017-10-23] MEDS: Piperacil/Tazo 3.375 GM Premix 50 ML IV.SIG SCH (15:58)
[2017-10-23] MEDS: Vancomycin Inj 1,500 MG in Sodium Chlor 0.9% Inj 500 ML IV.SIG SCH (16:27)
[2017-10-23] MEDS: Senna/Docusate Sodium 8.6/50 MG Tablet PO SCH ×2 (21:23→21:24)
[2017-10-24] MEDS: Piperacil/Tazo 3.375 GM Premix 50 ML IV.SIG SCH ×2 (01:00→06:01)
[2017-10-24 09:15] LABS: Baso % (Auto) 0.1 % (0.0-2.0); Hematocrit 40.4 % (39.0-51.0); Hemoglobin 13.7 gm/dL (13.0-17.0); Lymph # (Auto) 1.1 th/mm3 (1.0-4.8); Lymph % (Auto) 3.8 % (9.0-44.0); Mean Corpuscular Hemoglobin 30.7 pg (27.0-34.0); Mean Corpuscular Volume 90.5 fL (80.0-100.0); Mean Platelet Volume 9.2 fL (7.0-11.0); Mono # (Auto) 1.8 th/mm3 (0.0-0.9); Mono % (Auto) 6.3 % (0.0-8.0); Neut % (Auto) 89.8 % (16.0-70.0); Platelet Count 157 th/mm3 (150-450); Red Blood Count 4.46 mil/mm3 (4.50-5.90); White Blood Count 28.9 th/mm3 (4.0-11.0)
[2017-10-24] MEDS: Insulin NovoLOG Aspart Correctional Sugar Inj SQ SCH ×4 (09:35→20:12)
[2017-10-24] MEDS: Senna/Docusate Sodium 8.6/50 MG Tablet PO SCH ×2 (09:36→20:48)
[2017-10-24] MEDS: Metoprolol Tartrate 50 MG Tablet PO SCH (09:36)
[2017-10-24] MEDS: Vancomycin Inj 1,500 MG in Sodium Chlor 0.9% Inj 500 ML IV.SIG SCH (09:36)
[2017-10-24 09:49] LABS: Alanine Aminotransferase 25 U/L (12-78); Albumin 2.7 g/dL (3.4-5.0); Alkaline Phosphatase 83 U/L (45-117); Anion Gap 16 meq/L (5-15); Aspartate Aminotransferase 30 U/L (15-37); Blood Urea Nitrogen 19 mg/dL (7-18); Calcium 8.7 mg/dL (8.5-10.1); Carbon Dioxide 28.8 meq/L (21.0-32.0); Chloride 91 meq/L (98-107); Free T4 (Free Thyroxine) 1.27 ng/dL (0.76-1.46); Glomerular Filtration Rate 56 mL/min (>89); Glucose,Random 178 mg/dL (74-106); Magnesium 1.9 mg/dL (1.5-2.5); Phosphorus 2.6 mg/dL (2.5-4.9); Sodium 136 meq/L (136-145); Total Protein 7.1 g/dL (6.4-8.2)
[2017-10-24 09:56] LABS: Potassium 2.7 meq/L (3.5-5.1)
--- NOTE | 2017-10-24 13:49 | P.PNIM ---
Subjective Interval history: Mr. Russell is a 62 year old male. She has a history of diabetes mellitus type 2. She also has hypertension, hyperlipidemia, and a past history of CVA. At baseline he may have some degree of dementia. He has a friend who helps doses Lantus. He has had a previous hypoglycemic episode recently and has a repeat hypoglycemic episode today. Overdose of Lantus is a suspected etiology. It is uncertain how much Lantus this patient is getting. He is listed to have 80 units subcutaneous daily. Patient is unable to provide any clear history at this point. He is alert and oriented 1, etiology for this could be an underlying dementia or encephalopathy related to previous hyperglycemia that is lingering. Blood sugars are measured in the 40s today by EMS and had previously been as low as the 20s on previous episodes. 9-8 Follow-up for hypoglycemia: Patient awake, alert and oriented 2, expressive aphasia, history of CVA. Patient is unclear about his medications, indicates that someone assist him at home. Denies any chest pain, no shortness of breath. Blood sugars have improved overnight, lowest one was 40 most recent 127. Patient on D5 with potassium. 9-9 Follow-up for hypoglycemia: Patient awake, alert and oriented 2, expressive aphasia, history of CVA. No nausea, no vomiting, no diarrhea. Denies abdominal pain. Slept well overnight. Blood sugars to 75. 9-10 having uncontrolled blood pressure and fevers today DW RN AND PT PATIENT HAS APHASIA WATCH SUGARS ADJUST BP MEDS HAVING FEVERS, BC AND UA AND CHEST XRAY SPEECH EVAL FOR SWALLOW 9-11 WORSENING LEUKOCYTOSIS- WILL SEND STOOL FOR C.DIFFICILE TOXIN IF POSITIVE START ORAL VANCO DELFINO RN AND PT AND CM NO MORE FEVERS ON VANCO IV AND ZOSYN AM LABS START ORAL VANCO FOR C.DIFF COVERAGE Physical Exam Vital signs: Vital Signs 10/23/17 16:00 10/23/17 20:00 10/24/17 00:00 Temperature 98.8 F 98.4 F 97.9 F Pulse Rate 98 H 103 H 105 H Respiratory Rate 20 20 18 Blood Pressure 165/77 H 169/79 H 158/72 H Pulse Oximetry 99 96 95 10/24/17 04:00 10/24/17 08:00 10/24/17 12:14 Temperature 97.9 F 98.3 F Pulse Rate 111 H 101 H 92 H Respiratory Rate 16 19 Blood Pressure 155/67 H 135/70 Pulse Oximetry 98 97 Intake & Output 10/23/17 10/24/17 10/24/17 18:59 06:59 18:59 Intake Total 1085 / 1085 100 / 100 Output Total 1400 / 1400 650 / 650 Balance -315 / -315 -550 / -550 Weight 74.7 kg Intake: IV 565 / 565 100 / 100 Zosyn 3.375 GM Premix 50 ML @ 50 / 50 100 / 100 100 mls/hr IV.SIG Q8H SOLO Rx#: [id number] Vancomycin Inj 1,500 MG In NS 515 / 515 Inj 500 ML @ 250 mls/hr IV.SIG Q18H SOLO Rx#:[id number] Oral 520 / 520 Output: Urine 1400 / 1400 650 / 650 Other: # Incontinent Voids 2 Date of Last Bowel Movement 10/22/17 # Bowel Movements 0 # Incontinent Bowel Movements 1 Narrative: GENERAL: Well-nourished, well-developed patient in no apparent distress. SKIN: Warm and dry. HEAD: Atraumatic. Normocephalic. EYES: Pupils equal and round. No scleral icterus. No injection or drainage. ENT: No nasal bleeding or discharge. Mucous membranes pink and moist. NECK: Trachea midline. No JVD. CARDIOVASCULAR: Regular rate and rhythm. RESPIRATORY: No accessory muscle use. Clear to auscultation. Breath sounds equal bilaterally. GASTROINTESTINAL: Abdomen soft, non-tender, nondistended. Hepatic and splenic margins not palpable. MUSCULOSKELETAL: Right wrist contracted. Right upper extremity hemiparesis from prior stroke. No joint abnormality. Bilateral pedal pulses 2+, no edema. NEUROLOGICAL: awakes to voice, oriented to self and place. Expressive aphasia, speech mildly dysarthric. History of stroke. Right upper extremity hemiparesis. PSYCHIATRIC: Appropriate mood and affect; insight and judgment normal. Results - Labs CBC & Chem 7: 10/24/17 06:31 10/24/17 06:31 Laboratory Results - last 24 hr 10/23/17 10/24/17 10/24/17 13:00 06:31 06:31 WBC 28.9 H RBC 4.46 L Hgb 13.7 Hct 40.4 MCV 90.5 MCH 30.7 MCHC 34.0 RDW 14.0 Plt Count 157 MPV 9.2 Neut % (Auto) 89.8 H Lymph % (Auto) 3.8 L Mccone % (Auto) 6.3 Eos % (Auto) 0.0 Baso % (Auto) 0.1 Neut # (Auto) 26.0 H Lymph # (Auto) 1.1 Mccone # (Auto) 1.8 H Eos # (Auto) 0.0 Baso # (Auto) 0.0 WBC Differential . Differential Comment Auto diff final Sodium 136 Potassium 2.7 L* Chloride 91 L Carbon Dioxide 28.8 Anion Gap 16 H BUN 19 H Creatinine 1.53 H Estimated GFR 56 L POC Glucose Random Glucose 178 H Calcium 8.7 Phosphorus 2.6 Magnesium 1.9 Total Bilirubin 3.2 H AST 30 ALT 25 Alkaline Phosphatase 83 Total Protein 7.1 Albumin 2.7 L TSH 1.790 Free T4 1.27 Urine Color Yellow Urine Clarity Clear Urine pH 6.0 Ur Specific Mancos 1.013 Urine Protein 30 H Urine Glucose (UA) 500 or greater Urine Ketones Trace H Urine Occult Blood Moderate H Urine Nitrate Negative Urine Bilirubin Negative Urine Urobilinogen 4 or greater Ur Leukocyte Esterase Negative Urine RBC 2 Urine WBC Less than 1 Ur Squamous Epith Cells <1 Micro UA Comment Culture not ind Ur Microscopic Review Not Reportable Urine Culture Comments Culture not ind 10/24/17 10/24/17 08:09 11:34 WBC RBC Hgb Hct MCV MCH MCHC RDW Plt Count MPV Neut % (Auto) Lymph % (Auto) Mccone % (Auto) Eos % (Auto) Baso % (Auto) Neut # (Auto) Lymph # (Auto) Mccone # (Auto) Eos # (Auto) Baso # (Auto) WBC Differential Differential Comment Sodium Potassium Chloride Carbon Dioxide Anion Gap BUN Creatinine Estimated GFR POC Glucose 233 H 326 H Random Glucose Calcium Phosphorus Magnesium Total Bilirubin AST ALT Alkaline Phosphatase Total Protein Albumin TSH Free T4 Urine Color Urine Clarity Urine pH Ur Specific M[place] Urine Protein Urine Glucose (UA) Urine Ketones Urine Occult Blood Urine Nitrate Urine Bilirubin Urine Urobilinogen Ur Leukocyte Esterase Urine RBC Urine WBC Ur Squamous Epith Cells Micro UA Comment Ur Microscopic Review Urine Culture Comments Microbiology 10/23/17 12:57 Blood - Peripheral Aerobic Blood Culture - Preliminary No growth in 1 day 10/23/17 12:57 Blood - Peripheral Anaerobic Blood Culture - Preliminary No growth in 1 day 10/23/17 13:03 Blood - Peripheral Aerobic Blood Culture - Preliminary No growth in 1 day 10/23/17 13:03 Blood - Peripheral Anaerobic Blood Culture - Preliminary No growth in 1 day - Procedures NONE Assessment and Plan - Assessment (1) History of CVA with residual deficit Code(s): I69.30 - Unspecified sequelae of cerebral infarction Status: Acute (2) Hypoglycemia Code(s): E16.2 - Hypoglycemia, unspecified Status: Acute (3) Acute hypokalemia Code(s): E87.6 - Hypokalemia Status: Acute (4) Diabetes Code(s): E11.9 - Type 2 diabetes mellitus without complications Status: Acute - Plan 62-year-old male admitted secondary to hypoglycemia with acute hypokalemia Acute hypoglycemia This appears to be overdosed Lantus Once blood sugars stabilize Lantus could be resumed with a 25-50% cut from his baseline of 80 units nightly Blood sugars stabilizing, most recent 127 -Follow blood sugars -Accu-Cheks before meals and at bedtime with low-dose insulin therapy. Acute hypokalemia Possibly secondary to diuretics -Potassium is 2.8 again, will start on potassium 40 Meq q. p.o. twice daily. Will give KCl bolus 10 Meq 2. Repeat potassium level at 2pm REPLACE AGAIN AM LABS Leukocytosis, etiology unclear. No fever. No evidence of infection. Possibly secondary to stress response from hypoglycemia -Follow CBC TRENDING UP HAD FEVERS TODAY, CHEST XRAY, UA WITH C+S AND BLOOD CULTURES TYLENOL CHECK STOOL FOR C.DIFF IF CONTINUE ORAL VANCO IF POSITIVE START ORAL VANCO FOR 6 WEEKS Encephalopathy Possible underlying dementia History of CVA, expressive aphasia. Patient appears back to baseline. -Consult physical therapy for evaluation We will consult case management for discharge planning, home health care versus SNF if needed -Consult ST for cognitive eval. ST FOR POSSIBLE ASPIRATION Hypertension BP elevated -Continue home medications-Vasotec, BB, HCTZ -Clonidine PRN Hyperlipidemia -Continue home meds Diabetes mellitus type 2 Blood sugars trending up, to 75. -Follow blood sugars -Insulin sliding scale -Diabetic diet -We will restart Lantus at 40 units nightly Hx of CVA -PT eval and tx DVT Prophylaxis SCDs FEVERS CHECK UA AND CHEST XRAY AND BLOOD CULTURES HYPOKALEMIA WILL NEED TO REPLACE PO AND IV REPLACEMENT PT evaluation today Case management for discharge planning, home health care vs SNF Pt. likely benefits from SNF Code Status: FULL CODE Discussed Condition With: RN AND PT AND CM Discharge Planning: PENDING IMPROVEMENT HAD FEVERS YESTERDAY 9 (4) Diabetes Qualifiers: Diabetes mellitus type: type 2 Diabetes mellitus retirement insulin use: unspecified rn long term care insulin use status Diabetes mellitus complication status : with hypoglycemia
[2017-10-24] MEDS: Potassium Chlor 20 mEq Premix 20 MEQ/100 ML PIGGYBACK IV.SIG SCH ×5 (16:15→23:03)
[2017-10-24 16:48] LABS: Hemoglobin A1c 8.6 % (4.3-6.0)
[2017-10-25] MEDS: Vancomycin Inj 1,500 MG in Sodium Chlor 0.9% Inj 500 ML IV.SIG SCH ×2 (03:26→22:15)
[2017-10-25 07:09] LABS: Baso % (Auto) 0.1 % (0.0-2.0); Hematocrit 38.6 % (39.0-51.0); Hemoglobin 12.7 gm/dL (13.0-17.0); Lymph # (Auto) 0.8 th/mm3 (1.0-4.8); Lymph % (Auto) 2.7 % (9.0-44.0); Mean Corpuscular Hemoglobin 30.5 pg (27.0-34.0); Mean Corpuscular Volume 92.4 fL (80.0-100.0); Mean Platelet Volume 8.9 fL (7.0-11.0); Mono # (Auto) 1.5 th/mm3 (0.0-0.9); Mono % (Auto) 4.9 % (0.0-8.0); Neut # (Auto) 27.4 th/mm3 (1.8-7.7); Neut % (Auto) 92.3 % (16.0-70.0); Platelet Count 160 th/mm3 (150-450); Red Blood Count 4.18 mil/mm3 (4.50-5.90); Red Cell Distribution Width 14.4 % (11.6-17.2); White Blood Count 29.7 th/mm3 (4.0-11.0)
[2017-10-25 07:42] LABS: Alanine Aminotransferase 24 U/L (12-78); Albumin 2.3 g/dL (3.4-5.0); Anion Gap 11 meq/L (5-15); Aspartate Aminotransferase 21 U/L (15-37); Blood Urea Nitrogen 23 mg/dL (7-18); Calcium 8.6 mg/dL (8.5-10.1); Carbon Dioxide 29.4 meq/L (21.0-32.0); Chloride 97 meq/L (98-107); Glomerular Filtration Rate 65 mL/min (>89); Glucose,Random 233 mg/dL (74-106); Magnesium 2.3 mg/dL (1.5-2.5); Potassium 3.1 meq/L (3.5-5.1); Sodium 137 meq/L (136-145)
[2017-10-25 07:44] LABS: Alkaline Phosphatase 221 U/L (45-117); Total Protein 6.9 g/dL (6.4-8.2)
[2017-10-25] MEDS: Metoprolol Tartrate 50 MG Tablet PO SCH (08:06)
[2017-10-25] MEDS: Insulin NovoLOG Aspart Correctional Sugar Inj SQ SCH ×4 (08:06→22:16)
[2017-10-25] MEDS: Senna/Docusate Sodium 8.6/50 MG Tablet PO SCH ×2 (08:07→21:33)
--- NOTE | 2017-10-25 14:20 | P.PNIM ---
Subjective Interval history: No distress. Potassium levels remain low. Blood sugars are elevated. Physical Exam Vital signs: Vital Signs 10/24/17 16:00 10/24/17 20:00 10/25/17 00:00 Temperature 98.5 F 98.9 F 98.9 F Pulse Rate 101 H 114 H 106 H Respiratory Rate 19 21 22 Blood Pressure 161/75 H 156/82 H 165/87 H Pulse Oximetry 96 97 94 L 10/25/17 04:00 10/25/17 08:00 Temperature 98.9 F 98.6 F Pulse Rate 100 H 99 H Respiratory Rate 22 20 Blood Pressure 154/92 H 133/63 Pulse Oximetry 97 96 Intake & Output 10/24/17 10/25/17 10/25/17 18:59 06:59 18:59 Intake Total 1675 / 1675 1430 / 1430 Output Total 1150 / 1150 650 / 650 Balance 525 / 525 780 / 780 Intake: IV 715 / 715 915 / 915 Maxipime Inj 1,000 MG In NS Inj 100 / 100 100 / 100 100 ML @ 200 mls/hr IV.SIG Q12H SOLO Rx#:[id number] KCl 20 mEq Premix Inj 20 meq In 100 / 100 300 / 300 100 ml @ 50 mls/hr IV.SIG Q2H SOLO Rx#:[id number] Vancomycin Inj 1,500 MG In NS 515 / 515 515 / 515 Inj 500 ML @ 250 mls/hr IV.SIG Q18H SOLO Rx#:[id number] Oral 960 / 960 515 / 515 Output: Urine 1150 / 1150 650 / 650 Other: # Incontinent Voids 1 Date of Last Bowel Movement 10/22/17 Narrative: GENERAL: NAD, A&Ox2 HEAD: Normocephalic. NECK: Supple, trachea midline. No lymphadenopathy. EYES: No scleral icterus. No injection or drainage. CARDIOVASCULAR: Regular rate and rhythm without murmurs, gallops, or rubs. RESPIRATORY: Breath sounds equal bilaterally. No accessory muscle use. GASTROINTESTINAL: Abdomen soft, non-tender, nondistended. MUSCULOSKELETAL: No cyanosis, or edema. SKIN: Warm and dry. NEURO: No focal neurological deficits. Results - Labs CBC & Chem 7: 10/25/17 05:23 10/25/17 13:30 Laboratory Results - last 24 hr 10/24/17 10/24/1710/24/18 06:31 16:00 16:35 WBC RBC Hgb Hct MCV MCH MCHC RDW Plt Count MPV Neut % (Auto) Lymph % (Auto) Ware % (Auto) Eos % (Auto) Baso % (Auto) Neut # (Auto) Lymph # (Auto) Ware # (Auto) Eos # (Auto) Baso # (Auto) WBC Differential Differential Comment Sodium Potassium Chloride Carbon Dioxide Anion Gap BUN Creatinine Estimated GFR POC Glucose 318 H Random Glucose Hemoglobin A1c 8.6 H Calcium Phosphorus Magnesium Total Bilirubin AST ALT Alkaline Phosphatase Total Protein Albumin Stl C.difficile Tox PCR Negative St C. diff Tox Epid 027 Negative 10/24/17 10/24/17 10/25/17 19:13 20:57 05:23 WBC 29.7 H RBC 4.18 L Hgb 12.7 L Hct 38.6 L MCV 92.4 MCH 30.5 MCHC 33.0 RDW 14.4 Plt Count 160 MPV 8.9 Neut % (Auto) 92.3 H Lymph % (Auto) 2.7 L Ware % (Auto) 4.9 Eos % (Auto) 0.0 Baso % (Auto) 0.1 Neut # (Auto) 27.4 H Lymph # (Auto) 0.8 L Ware # (Auto) 1.5 H Eos # (Auto) 0.0 Baso # (Auto) 0.0 WBC Differential . Differential Comment Auto diff final Sodium Potassium Chloride Carbon Dioxide Anion Gap BUN Creatinine Estimated GFR POC Glucose 286 H 305 H Random Glucose Hemoglobin A1c Calcium Phosphorus Magnesium Total Bilirubin AST ALT Alkaline Phosphatase Total Protein Albumin Stl C.difficile Tox PCR St C. diff Tox Epid 027 10/25/17 10/25/17 10/25/17 05:23 08:00 12:44 WBC RBC Hgb Hct MCV MCH MCHC RDW Plt Count MPV Neut % (Auto) Lymph % (Auto) Ware % (Auto) Eos % (Auto) Baso % (Auto) Neut # (Auto) Lymph # (Auto) Ware # (Auto) Eos # (Auto) Baso # (Auto) WBC Differential Differential Comment Sodium 137 Potassium 3.1 L Chloride 97 L Carbon Dioxide 29.4 Anion Gap 11 BUN 23 H Creatinine 1.34 H Estimated GFR 65 L POC Glucose 262 H 305 H Random Glucose 233 H Hemoglobin A1c Calcium 8.6 Phosphorus 2.0 L Magnesium 2.3 Total Bilirubin 2.3 H AST 21 ALT 24 Alkaline Phosphatase 221 H Total Protein 6.9 Albumin 2.3 L Stl C.difficile Tox PCR St C. diff Tox Epid 027 10/25/17 13:30 WBC RBC Hgb Hct MCV MCH MCHC RDW Plt Count MPV Neut % (Auto) Lymph % (Auto) Ware % (Auto) Eos % (Auto) Baso % (Auto) Neut # (Auto) Lymph # (Auto) Ware # (Auto) Eos # (Auto) Baso # (Auto) WBC Differential Differential Comment Sodium Potassium 3.4 L Chloride Carbon Dioxide Anion Gap BUN Creatinine Estimated GFR POC Glucose Random Glucose Hemoglobin A1c Calcium Phosphorus Magnesium Total Bilirubin AST ALT Alkaline Phosphatase Total Protein Albumin Stl C.difficile Tox PCR St C. diff Tox Epid 027 Microbiology 10/23/17 12:57 Blood - Peripheral Aerobic Blood Culture - Preliminary No growth in 2 days 10/23/17 12:57 Blood - Peripheral Anaerobic Blood Culture - Preliminary No growth in 2 days 10/23/17 13:03 Blood - Peripheral Aerobic Blood Culture - Preliminary No growth in 2 days 10/23/17 13:03 Blood - Peripheral Anaerobic Blood Culture - Preliminary No growth in 2 days - Procedures NONE Assessment and Plan - Assessment (1) History of CVA with residual deficit Code(s): I69.30 - Unspecified sequelae of cerebral infarction Status: Acute (2) Hypoglycemia Code(s): E16.2 - Hypoglycemia, unspecified Status: Acute (3) Acute hypokalemia Code(s): E87.6 - Hypokalemia Status: Acute (4) Diabetes Code(s): E11.9 - Type 2 diabetes mellitus without complications Status: Acute - Plan 62-year-old male admitted secondary to hypoglycemia with acute hypokalemia Hyponatremia Follow and replace as needed Once stable, will be a potential for discharge Acute hypoglycemia Resolved D5 IV has been discontinued Follow blood sugars Resume treatment at lower doses once blood sugars stabilize Encephalopathy Possible underlying dementia Improving Supportive care Hypertension Continue baseline treatment Follow blood pressures Adjust treatments as needed Hyperlipidemia Continue present treatment Follow as an outpatient Diabetes mellitus type 2 Follow blood sugars Insulin sliding scale Diabetic diet NPH provided as an additional treatment today Hx of CVA No acute changes follow clinically DVT Prophylaxis SCDs (4) Diabetes Qualifiers: Diabetes mellitus type: type 2 Diabetes mellitus group home insulin use: unspecified group home insulin use status Diabetes mellitus complication status : with hypoglycemia
[2017-10-25] MEDS: Acetaminophen 325 MG Tablet PO PRN (21:33)
[2017-10-25] MEDS ORDERED: Pharmacy Ordered Lab Info OTHER ONE (21:45)
[2017-10-26 07:16] LABS: Baso % (Auto) 0.1 % (0.0-2.0); Eos # (Auto) 0.1 th/mm3 (0.0-0.4); Eos % (Auto) 0.2 % (0.0-4.0); Hematocrit 38.6 % (39.0-51.0); Lymph # (Auto) 0.9 th/mm3 (1.0-4.8); Lymph % (Auto) 2.9 % (9.0-44.0); Mean Corpuscular HGB Conc 33.5 % (32.0-36.0); Mean Corpuscular Hemoglobin 30.6 pg (27.0-34.0); Mean Corpuscular Volume 91.3 fL (80.0-100.0); Mono # (Auto) 1.3 th/mm3 (0.0-0.9); Mono % (Auto) 4.2 % (0.0-8.0); Neut # (Auto) 29.6 th/mm3 (1.8-7.7); Neut % (Auto) 92.6 % (16.0-70.0); Platelet Count 176 th/mm3 (150-450); Red Blood Count 4.23 mil/mm3 (4.50-5.90); Red Cell Distribution Width 14.2 % (11.6-17.2)
[2017-10-26 07:32] LABS: Alanine Aminotransferase 23 U/L (12-78); Albumin 2.1 g/dL (3.4-5.0); Alkaline Phosphatase 104 U/L (45-117); Anion Gap 14 meq/L (5-15); Aspartate Aminotransferase 24 U/L (15-37); Blood Urea Nitrogen 22 mg/dL (7-18); Calcium 8.5 mg/dL (8.5-10.1); Carbon Dioxide 29.5 meq/L (21.0-32.0); Chloride 98 meq/L (98-107); Glomerular Filtration Rate 65 mL/min (>89); Glucose,Random 192 mg/dL (74-106); Magnesium 2.4 mg/dL (1.5-2.5); Phosphorus 2.4 mg/dL (2.5-4.9); Sodium 141 meq/L (136-145)
[2017-10-26 07:50] LABS: Potassium 2.8 meq/L (3.5-5.1)
[2017-10-26 07:58] LABS: Lymphocytes 3 % (9-44); Monocytes 6 % (0-8)
[2017-10-26 07:59] LABS: Platelet Estimate Normal (Normal); Platelet Morphology Normal (Normal)
[2017-10-26] MEDS: Metoprolol Tartrate 50 MG Tablet PO SCH (08:42)
[2017-10-26] MEDS: Senna/Docusate Sodium 8.6/50 MG Tablet PO SCH ×2 (08:43→20:50)
--- NOTE | 2017-10-26 10:14 | P.PNIM ---
Subjective Interval history: Significant hypokalemia and elevated blood sugars are present today. Patient has no new complaints. Not medically stable for discharge. Physical Exam Vital signs: Vital Signs 10/25/17 12:00 10/25/17 16:00 10/25/17 17:06 Temperature 98.0 F 98.3 F Pulse Rate 92 H 97 H 94 H Respiratory Rate 20 20 Blood Pressure 144/67 H 151/76 H Pulse Oximetry 98 10/25/17 20:00 10/26/17 00:00 10/26/17 04:00 Temperature 101.4 F H 98.9 F 97.7 F Pulse Rate 104 H 91 H 92 H Respiratory Rate 21 19 19 Blood Pressure 132/67 138/65 159/75 H Pulse Oximetry 94 L 95 97 10/26/17 08:00 Temperature 100.4 F H Pulse Rate 98 H Respiratory Rate 18 Blood Pressure 172/79 H Pulse Oximetry 95 Intake & Output 10/25/17 10/26/17 10/26/17 18:59 06:59 18:59 Intake Total 340 / 340 1330 / 1330 Output Total 400 / 400 1200 / 1200 Balance -60 / -60 130 / 130 Weight 72.7 kg Intake: IV 100 / 100 650 / 650 Maxipime Inj 1,000 MG In NS Inj 100 / 100 100 / 100 100 ML @ 200 mls/hr IV.SIG Q12H SOLO Rx#:[id number] Vancomycin Inj 1,500 MG In NS 550 / 550 Inj 500 ML @ 250 mls/hr IV.SIG Q18H SOLO Rx#:[id number] Oral 240 / 240 680 / 680 Output: Urine 400 / 400 1200 / 1200 Other: # Bowel Movements 2 Narrative: GENERAL: NAD, A&Ox2 HEAD: Normocephalic. NECK: Supple, trachea midline. No lymphadenopathy. EYES: No scleral icterus. No injection or drainage. CARDIOVASCULAR: Regular rate and rhythm without murmurs, gallops, or rubs. RESPIRATORY: Breath sounds equal bilaterally. No accessory muscle use. GASTROINTESTINAL: Abdomen soft, non-tender, nondistended. MUSCULOSKELETAL: No cyanosis, or edema. SKIN: Warm and dry. NEURO: No focal neurological deficits. Results - Labs CBC & Chem 7: 10/26/17 06:04 10/26/17 06:04 Laboratory Results - last 24 hr 10/25/17 10/25/17 10/25/17 12:44 13:30 16:45 WBC RBC Hgb Hct MCV MCH MCHC RDW Plt Count MPV Prelim Diff (Auto) Neut % (Auto) Lymph % (Auto) Taylor % (Auto) Eos % (Auto) Baso % (Auto) Neut # (Auto) Lymph # (Auto) Taylor # (Auto) Eos # (Auto) Baso # (Auto) WBC Differential Seg Neuts % (Manual) Band Neuts % (Manual) Lymphocytes % (Manual) Monocytes % (Manual) Abs Neuts (Manual) Differential Comment Platelet Estimate Platelet Morphology Sodium Potassium 3.4 L Chloride Carbon Dioxide Anion Gap BUN Creatinine Estimated GFR POC Glucose 305 H 300 H Random Glucose Calcium Phosphorus Magnesium Total Bilirubin AST ALT Alkaline Phosphatase Total Protein Albumin Vancomycin Trough 10/25/17 10/25/17 10/26/17 21:40 22:10 06:04 WBC 32.0 H RBC 4.23 L Hgb 13.0 Hct 38.6 L MCV 91.3 MCH 30.6 MCHC 33.5 RDW 14.2 Plt Count 176 MPV 9.0 Prelim Diff (Auto) Slide review pending Neut % (Auto) 92.6 H Lymph % (Auto) 2.9 L Taylor % (Auto) 4.2 Eos % (Auto) 0.2 Baso % (Auto) 0.1 Neut # (Auto) 29.6 H Lymph # (Auto) 0.9 L Taylor # (Auto) 1.3 H Eos # (Auto) 0.1 Baso # (Auto) 0.0 WBC Differential Manual diff final Seg Neuts % (Manual) 86 H Band Neuts % (Manual) 5 Lymphocytes % (Manual) 3 L Monocytes % (Manual) 6 Abs Neuts (Manual) 29.1 H Differential Comment . Platelet Estimate Normal Platelet Morphology Normal Sodium Potassium Chloride Carbon Dioxide Anion Gap BUN Creatinine Estimated GFR POC Glucose 362 H Random Glucose Calcium Phosphorus Magnesium Total Bilirubin AST ALT Alkaline Phosphatase Total Protein Albumin Vancomycin Trough 9.5 10/26/17 06:04 WBC RBC Hgb Hct MCV MCH MCHC RDW Plt Count MPV Prelim Diff (Auto) Neut % (Auto) Lymph % (Auto) Taylor % (Auto) Eos % (Auto) Baso % (Auto) Neut # (Auto) Lymph # (Auto) Taylor # (Auto) Eos # (Auto) Baso # (Auto) WBC Differential Seg Neuts % (Manual) Band Neuts % (Manual) Lymphocytes % (Manual) Monocytes % (Manual) Abs Neuts (Manual) Differential Comment Platelet Estimate Platelet Morphology Sodium 141 Potassium 2.8 L* Chloride 98 Carbon Dioxide 29.5 Anion Gap 14 BUN 22 H Creatinine 1.34 H Estimated GFR 65 L POC Glucose Random Glucose 192 H Calcium 8.5 Phosphorus 2.4 L Magnesium 2.4 Total Bilirubin 1.4 H AST 24 ALT 23 Alkaline Phosphatase 104 Total Protein 7.0 Albumin 2.1 L Vancomycin Trough Microbiology 10/23/17 12:57 Blood - Peripheral Aerobic Blood Culture - Preliminary No growth in 2 days 10/23/17 12:57 Blood - Peripheral Anaerobic Blood Culture - Preliminary No growth in 2 days 10/23/17 13:03 Blood - Peripheral Aerobic Blood Culture - Preliminary No growth in 2 days 10/23/17 13:03 Blood - Peripheral Anaerobic Blood Culture - Preliminary No growth in 2 days - Procedures NONE Assessment and Plan - Assessment (1) History of CVA with residual deficit Code(s): I69.30 - Unspecified sequelae of cerebral infarction Status: Acute (2) Hypoglycemia Code(s): E16.2 - Hypoglycemia, unspecified Status: Acute (3) Acute hypokalemia Code(s): E87.6 - Hypokalemia Status: Acute (4) Diabetes Code(s): E11.9 - Type 2 diabetes mellitus without complications Status: Acute - Plan 62-year-old male admitted secondary to hypoglycemia with acute hypokalemia Insulins adjusted for better control of blood sugars. Hypokalemia Continue monitoring and replace as needed Not yet stable Stability needed prior to discharge Acute hypoglycemia Resolved D5 IV has been discontinued Follow blood sugars Resume treatment at lower doses once blood sugars stabilize Encephalopathy Possible underlying dementia Improving Supportive care Hypertension Continue baseline treatment Follow blood pressures Adjust treatments as needed Hyperlipidemia Continue present treatment Follow as an outpatient Diabetes mellitus type 2 Follow blood sugars Insulin sliding scale Diabetic diet NPH provided as an additional treatment today Hx of CVA No acute changes follow clinically DVT Prophylaxis SCDs (4) Diabetes Qualifiers: Diabetes mellitus type: type 2 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
[2017-10-26] MEDS: Insulin NovoLOG Aspart Correctional Sugar Inj SQ SCH ×4 (10:53→20:50)
[2017-10-26] MEDS: Vancomycin Inj 1,500 MG in Sodium Chlor 0.9% Inj 500 ML IV.SIG SCH ×2 (10:54→21:15)
[2017-10-27 06:11] LABS: Baso # (Auto) 0.1 th/mm3 (0.0-0.2); Baso % (Auto) 0.2 % (0.0-2.0); Eos % (Auto) 0.1 % (0.0-4.0); Hematocrit 37.1 % (39.0-51.0); Hemoglobin 12.3 gm/dL (13.0-17.0); Lymph # (Auto) 0.8 th/mm3 (1.0-4.8); Lymph % (Auto) 2.9 % (9.0-44.0); Mean Corpuscular HGB Conc 33.1 % (32.0-36.0); Mean Corpuscular Hemoglobin 30.6 pg (27.0-34.0); Mean Corpuscular Volume 92.6 fL (80.0-100.0); Mean Platelet Volume 9.1 fL (7.0-11.0); Mono # (Auto) 1.4 th/mm3 (0.0-0.9); Neut # (Auto) 24.9 th/mm3 (1.8-7.7); Neut % (Auto) 91.8 % (16.0-70.0); Platelet Count 184 th/mm3 (150-450); Red Cell Distribution Width 14.6 % (11.6-17.2); White Blood Count 27.2 th/mm3 (4.0-11.0)
[2017-10-27] MEDS: Acetaminophen 325 MG Tablet PO PRN ×2 (06:34→21:45)
[2017-10-27 06:39] LABS: Albumin 2.1 g/dL (3.4-5.0); Anion Gap 11 meq/L (5-15); Aspartate Aminotransferase 30 U/L (15-37); Blood Urea Nitrogen 21 mg/dL (7-18); Calcium 8.5 mg/dL (8.5-10.1); Carbon Dioxide 26.6 meq/L (21.0-32.0); Chloride 97 meq/L (98-107); Glomerular Filtration Rate 58 mL/min (>89); Glucose,Random 275 mg/dL (74-106); Potassium 3.2 meq/L (3.5-5.1); Sodium 135 meq/L (136-145)
[2017-10-27 06:41] LABS: Alanine Aminotransferase 27 U/L (12-78)
[2017-10-27 06:42] LABS: Alkaline Phosphatase 164 U/L (45-117); Total Protein 6.8 g/dL (6.4-8.2)
[2017-10-27 07:54] LABS: Dohle Bodies Present; Lymphocytes 4 % (9-44); Monocytes 4 % (0-8); Platelet Estimate Normal (Normal)
[2017-10-27] MEDS: Metoprolol Tartrate 50 MG Tablet PO SCH (09:19)
[2017-10-27] MEDS: Senna/Docusate Sodium 8.6/50 MG Tablet PO SCH ×2 (09:19→21:45)
--- NOTE | 2017-10-27 09:21 | XR ---
EXAM DATE: 10/27/2017 8:56 AM EDT AGE/SEX: 62 years / Male INDICATIONS: Shortness of breath. CLINICAL DATA: This is the patient's subsequent encounter. Patient reports that signs and symptoms h ave been present for 1 week and indicates a pain score of 0/10. MEDICAL/SURGICAL HISTORY: Stroke. Diabetes. Hypertension. None. COMPARISON: [facility] – [place], CHEST 1V SINGLE AP, 10/20/2017. [facility] [place], CHEST 2V PA&LAT, 10/23/2017. . FINDINGS: There are some patchy nonconsolidative infiltrates in the left lower lung with air bronchograms. No s ignificant loss of delineation left hemidiaphragm. The right lung is clear. The heart is normal in si ze. CONCLUSION: Patchy nonconsolidative infiltrates in the left lower lobe. Electronically signed by: Hong Stevens MD 10/27/2017 9:20 AM EDT
[2017-10-27] MEDS: Insulin NovoLOG Aspart Correctional Sugar Inj SQ SCH ×4 (09:29→22:00)
[2017-10-27] MEDS ORDERED: Pharmacy Ordered Lab Info OTHER ONE (09:45)
--- NOTE | 2017-10-27 10:22 | P.PNIM ---
Subjective Interval history: Potassium level remains low but has a relative improvement. Fever present overnight. Patient denies any feelings of infection. Physical Exam Vital signs: Vital Signs 10/26/17 12:00 10/26/17 16:00 10/26/17 20:00 Temperature 98.6 F 98.9 F 99.2 F Pulse Rate 90 94 H 106 H Respiratory Rate 20 21 18 Blood Pressure 149/77 H 155/80 H 149/71 H Pulse Oximetry 95 95 94 L 10/27/17 00:00 10/27/17 04:00 10/27/17 06:36 Temperature 100.9 F H 101.7 F H Pulse Rate 100 H 101 H 99 H Respiratory Rate 16 18 Blood Pressure 158/73 H 158/71 H Pulse Oximetry 94 L 95 10/27/17 08:00 Temperature 99.2 F Pulse Rate 96 H Respiratory Rate 20 Blood Pressure 157/74 H Pulse Oximetry 94 L Intake & Output 10/26/17 10/27/17 10/27/17 18:59 06:59 18:59 Intake Total 1095 / 1095 640 / 640 Output Total 1000 / 1000 800 / 800 Balance 95 / 95 -160 / -160 Weight 72.6 kg Intake: IV 615 / 615 640 / 640 Maxipime Inj 1,000 MG In NS Inj 100 / 100 100 / 100 100 ML @ 200 mls/hr IV.SIG Q12H [facility] Rx#:[id number] Vancomycin Inj 1,500 MG In NS 515 / 515 540 / 540 Inj 500 ML @ 250 mls/hr IV.SIG Q12H [facility]O Rx#:[id number] Oral 480 / 480 Output: Urine 1000 / 1000 800 / 800 Other: Date of Last Bowel Movement 10/22/17 10/26/17 # Bowel Movements 1 2 Narrative: GENERAL: NAD, A&Ox2 HEAD: Normocephalic. NECK: Supple, trachea midline. No lymphadenopathy. EYES: No scleral icterus. No injection or drainage. CARDIOVASCULAR: Regular rate and rhythm without murmurs, gallops, or rubs. RESPIRATORY: Breath sounds equal bilaterally. No accessory muscle use. GASTROINTESTINAL: Abdomen soft, non-tender, nondistended. MUSCULOSKELETAL: No cyanosis, or edema. SKIN: Warm and dry. NEURO: No focal neurological deficits. Results - Labs CBC & Chem 7: 10/27/17 04:49 10/27/17 04:49 Laboratory Results - last 24 hr 10/26/17 10/26/17 10/26/17 11:34 14:20 16:56 WBC RBC Hgb Hct MCV MCH MCHC RDW Plt Count MPV Prelim Diff (Auto) Neut % (Auto) Lymph % (Auto) [place] % (Auto) Eos % (Auto) Baso % (Auto) Neut # (Auto) Lymph # (Auto) [place] # (Auto) Eos # (Auto) Baso # (Auto) WBC Differential Seg Neuts % (Manual) Band Neuts % (Manual) Lymphocytes % (Manual) Monocytes % (Manual) Abs Neuts (Manual) Differential Comment Dohle Bodies Platelet Estimate Platelet Morphology Sodium Potassium 3.1 L Chloride Carbon Dioxide Anion Gap BUN Creatinine Estimated GFR POC Glucose 326 H 278 H Random Glucose Calcium Total Bilirubin AST ALT Alkaline Phosphatase Total Protein Albumin 10/26/17 10/27/17 10/27/17 20:04 04:49 04:49 WBC 27.2 H RBC 4.00 L Hgb 12.3 L Hct 37.1 L MCV 92.6 MCH 30.6 MCHC 33.1 RDW 14.6 Plt Count 184 MPV 9.1 Prelim Diff (Auto) Slide review pending Neut % (Auto) 91.8 H Lymph % (Auto) 2.9 L [place] % (Auto) 5.0 Eos % (Auto) 0.1 Baso % (Auto) 0.2 Neut # (Auto) 24.9 H Lymph # (Auto) 0.8 L [place] # (Auto) 1.4 H Eos # (Auto) 0.0 Baso # (Auto) 0.1 WBC Differential Manual diff final Seg Neuts % (Manual) 83 H Band Neuts % (Manual) 9 H Lymphocytes % (Manual) 4 L Monocytes % (Manual) 4 Abs Neuts (Manual) 25.0 H Differential Comment . Dohle Bodies Present H Platelet Estimate Normal Platelet Morphology Enlarged H Sodium 135 L Potassium 3.2 L Chloride 97 L Carbon Dioxide 26.6 Anion Gap 11 BUN 21 H Creatinine 1.48 H Estimated GFR 58 L POC Glucose 247 H Random Glucose 275 H Calcium 8.5 Total Bilirubin 1.2 H AST 30 ALT 27 Alkaline Phosphatase 164 H Total Protein 6.8 Albumin 2.1 L 10/27/17 08:53 WBC RBC Hgb Hct MCV MCH MCHC RDW Plt Count MPV Prelim Diff (Auto) Neut % (Auto) Lymph % (Auto) [place] % (Auto) Eos % (Auto) Baso % (Auto) Neut # (Auto) Lymph # (Auto) [place] # (Auto) Eos # (Auto) Baso # (Auto) WBC Differential Seg Neuts % (Manual) Band Neuts % (Manual) Lymphocytes % (Manual) Monocytes % (Manual) Abs Neuts (Manual) Differential Comment Dohle Bodies Platelet Estimate Platelet Morphology Sodium Potassium Chloride Carbon Dioxide Anion Gap BUN Creatinine Estimated GFR POC Glucose 284 H Random Glucose Calcium Total Bilirubin AST ALT Alkaline Phosphatase Total Protein Albumin Microbiology 10/23/17 12:57 Blood - Peripheral Aerobic Blood Culture - Preliminary No growth in 3 days 10/23/17 12:57 Blood - Peripheral Anaerobic Blood Culture - Preliminary No growth in 3 days 10/23/17 13:03 Blood - Peripheral Aerobic Blood Culture - Preliminary No growth in 3 days 10/23/17 13:03 Blood - Peripheral Anaerobic Blood Culture - Preliminary No growth in 3 days - Imaging Impressions Chest X-Ray 10/27/17 00:00 CONCLUSION: Patchy nonconsolidative infiltrates in the left lower lobe. - Procedures NONE Assessment and Plan - Assessment (1) History of CVA with residual deficit Code(s): I69.30 - Unspecified sequelae of cerebral infarction Status: Acute (2) Hypoglycemia Code(s): E16.2 - Hypoglycemia, unspecified Status: Acute (3) Acute hypokalemia Code(s): E87.6 - Hypokalemia Status: Acute (4) Diabetes Code(s): E11.9 - Type 2 diabetes mellitus without complications Status: Acute - Plan 62-year-old male admitted secondary to hypoglycemia with acute hypokalemia Fever present overnight. Urinalysis, chest x-ray, and blood cultures ordered. Continue to monitor fever pattern. Continue on vancomycin and cefepime. Insulins adjusted for better control of blood sugars. Potassium replacements continued. Hypokalemia Continue monitoring and replace as needed Not yet stable Stability needed prior to discharge Acute hypoglycemia Resolved D5 IV has been discontinued Follow blood sugars Resume treatment at lower doses once blood sugars stabilize Encephalopathy Possible underlying dementia Improving Supportive care Hypertension Continue baseline treatment Follow blood pressures Adjust treatments as needed Hyperlipidemia Continue present treatment Follow as an outpatient Diabetes mellitus type 2 Follow blood sugars Insulin sliding scale Diabetic diet NPH provided as an additional treatment today Hx of CVA No acute changes follow clinically DVT Prophylaxis SCDs (4) Diabetes Qualifiers: Diabetes mellitus type: type 2 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
[2017-10-27] MEDS: Vancomycin Inj 1,500 MG in Sodium Chlor 0.9% Inj 500 ML IV.SIG SCH ×2 (10:40→21:45)
[2017-10-27] MEDS: Lactobacillus Acidophilus/L. Spores Tablet PO SCH ×2 (12:21→18:30)
[2017-10-27 20:41] LABS: Bilirubin,Urine Negative (Negative); Clarity,Urine Hazy (Clear); Color,Urine Yellow (Yellw/Straw); Glucose,Urine (UA) 500 or Greater mg/dL (Negative); Leukocyte Esterase,Urine Negative (Negative); Nitrite,Urine Negative (Negative); Specific Gravity,Urine 1.013 (1.002-1.035)
[2017-10-28 07:09] LABS: Baso # (Auto) 0.1 th/mm3 (0.0-0.2); Baso % (Auto) 0.2 % (0.0-2.0); Eos # (Auto) 0.1 th/mm3 (0.0-0.4); Eos % (Auto) 0.3 % (0.0-4.0); Hematocrit 38.2 % (39.0-51.0); Hemoglobin 12.7 gm/dL (13.0-17.0); Lymph # (Auto) 1.5 th/mm3 (1.0-4.8); Mean Corpuscular HGB Conc 33.3 % (32.0-36.0); Mean Corpuscular Hemoglobin 30.6 pg (27.0-34.0); Mean Platelet Volume 8.7 fL (7.0-11.0); Mono # (Auto) 1.9 th/mm3 (0.0-0.9); Mono % (Auto) 6.6 % (0.0-8.0); Neut # (Auto) 25.4 th/mm3 (1.8-7.7); Neut % (Auto) 87.9 % (16.0-70.0); Platelet Count 227 th/mm3 (150-450); Red Blood Count 4.15 mil/mm3 (4.50-5.90); Red Cell Distribution Width 14.5 % (11.6-17.2); White Blood Count 28.9 th/mm3 (4.0-11.0)
[2017-10-28 07:36] LABS: Alanine Aminotransferase 35 U/L (12-78); Albumin 2.1 g/dL (3.4-5.0); Anion Gap 11 meq/L (5-15); Aspartate Aminotransferase 36 U/L (15-37); Blood Urea Nitrogen 23 mg/dL (7-18); Calcium 8.6 mg/dL (8.5-10.1); Carbon Dioxide 31.4 meq/L (21.0-32.0); Chloride 99 meq/L (98-107); Glomerular Filtration Rate 64 mL/min (>89); Glucose,Random 93 mg/dL (74-106); Sodium 141 meq/L (136-145)
[2017-10-28 07:41] LABS: Alkaline Phosphatase 118 U/L (45-117); Total Protein 7.2 g/dL (6.4-8.2)
[2017-10-28 07:47] LABS: Potassium 2.8 meq/L (3.5-5.1)
[2017-10-28] MEDS: Insulin NovoLOG Aspart Correctional Sugar Inj SQ SCH ×4 (09:44→21:50)
[2017-10-28] MEDS: Senna/Docusate Sodium 8.6/50 MG Tablet PO SCH ×2 (09:47→21:00)
[2017-10-28] MEDS: Metoprolol Tartrate 50 MG Tablet PO SCH (09:48)
[2017-10-28] MEDS: Lactobacillus Acidophilus/L. Spores Tablet PO SCH ×3 (09:48→18:13)
[2017-10-28] MEDS: Vancomycin Inj 1,500 MG in Sodium Chlor 0.9% Inj 500 ML IV.SIG SCH ×2 (09:48→21:01)
--- NOTE | 2017-10-28 11:34 | P.PNIM ---
Subjective Interval history: No acute changes, patient's potassium remains low. Patient is not stable for discharge until potassium is stabilized. He has no complaints today. Physical Exam Vital signs: Vital Signs 10/27/17 12:00 10/27/17 16:00 10/27/17 20:00 Temperature 99.4 F 98.1 F 102.6 F H Pulse Rate 86 87 104 H Respiratory Rate 21 21 18 Blood Pressure 139/66 164/73 H 157/71 H Pulse Oximetry 95 94 L 94 L 10/28/17 00:00 10/28/17 04:00 10/28/17 08:00 Temperature 99.4 F 99.5 F 99.3 F Pulse Rate 88 92 H 94 H Respiratory Rate 16 18 18 Blood Pressure 143/85 H 155/67 H 167/79 H Pulse Oximetry 96 94 L 95 Intake & Output 10/27/17 10/28/17 10/28/17 18:59 06:59 18:59 Intake Total 1535 / 1535 855 / 855 Output Total 1000 / 1000 1200 / 1200 Balance 535 / 535 -345 / -345 Weight 71.3 kg Intake: IV 815 / 815 615 / 615 Maxipime Inj 1,000 MG In NS Inj 100 / 100 100 / 100 100 ML @ 200 mls/hr IV.SIG Q12H [facility] Rx#:[id number] Diflucan 400 mg Premix Bag 200 200 / 200 ML @ 100 mls/hr IV.SIG Q24H [facility] Rx#:[id number] Vancomycin Inj 1,500 MG In NS 515 / 515 515 / 515 Inj 500 ML @ 250 mls/hr IV.SIG Q12H [facility] Rx#:[id number] Oral 720 / 720 240 / 240 Output: Urine 1000 / 1000 1200 / 1200 Other: Date of Last Bowel Movement 10/26/17 10/27/17 # Bowel Movements 1 # Incontinent Bowel Movements 1 Narrative: GENERAL: NAD, A&Ox2 HEAD: Normocephalic. NECK: Supple, trachea midline. No lymphadenopathy. EYES: No scleral icterus. No injection or drainage. CARDIOVASCULAR: Regular rate and rhythm without murmurs, gallops, or rubs. RESPIRATORY: Breath sounds equal bilaterally. No accessory muscle use. GASTROINTESTINAL: Abdomen soft, non-tender, nondistended. MUSCULOSKELETAL: No cyanosis, or edema. SKIN: Warm and dry. NEURO: No focal neurological deficits. Results - Labs CBC & Chem 7: 10/28/17 04:46 10/28/17 06:46 Laboratory Results - last 24 hr 10/27/17 10/27/17 10/28/17 10:50 16:15 04:46 WBC 28.9 H RBC 4.15 L Hgb 12.7 L Hct 38.2 L MCV 92.0 MCH 30.6 MCHC 33.3 RDW 14.5 Plt Count 227 MPV 8.7 Neut % (Auto) 87.9 H Lymph % (Auto) 5.0 L [place] % (Auto) 6.6 Eos % (Auto) 0.3 Baso % (Auto) 0.2 Neut # (Auto) 25.4 H Lymph # (Auto) 1.5 Charles # (Auto) 1.9 H Eos # (Auto) 0.1 Baso # (Auto) 0.1 WBC Differential . Differential Comment Auto diff final Sodium Potassium Chloride Carbon Dioxide Anion Gap BUN Creatinine Estimated GFR Random Glucose Calcium Total Bilirubin AST ALT Alkaline Phosphatase Total Protein Albumin Urine Color Yellow Urine Clarity Hazy H Urine pH 6.0 Ur Specific [place] 1.013 Urine Protein 30 H Urine Glucose (UA) 500 or greater Urine Ketones Negative Urine Occult Blood Moderate H Urine Nitrate Negative Urine Bilirubin Negative Urine Urobilinogen Less than 2 Ur Leukocyte Esterase Negative Urine RBC 1 Urine WBC 1 Micro UA Comment Culture not ind Ur Microscopic Review Not Reportable Urine Culture Comments Culture not ind Vancomycin Trough 15.4 H 10/28/17 06:46 WBC RBC Hgb Hct MCV MCH MCHC RDW Plt Count MPV Neut % (Auto) Lymph % (Auto) [place] % (Auto) Eos % (Auto) Baso % (Auto) Neut # (Auto) Lymph # (Auto) [place] # (Auto) Eos # (Auto) Baso # (Auto) WBC Differential Differential Comment Sodium 141 Potassium 2.8 L* Chloride 99 Carbon Dioxide 31.4 Anion Gap 11 BUN 23 H Creatinine 1.36 H Estimated GFR 64 L Random Glucose 93 D Calcium 8.6 Total Bilirubin 1.2 H AST 36 ALT 35 Alkaline Phosphatase 118 H Total Protein 7.2 Albumin 2.1 L Urine Color Urine Clarity Urine pH Ur Specific [place] Urine Protein Urine Glucose (UA) Urine Ketones Urine Occult Blood Urine Nitrate Urine Bilirubin Urine Urobilinogen Ur Leukocyte Esterase Urine RBC Urine WBC Micro UA Comment Ur Microscopic Review Urine Culture Comments Vancomycin Trough Microbiology 10/27/17 10:40 Blood - Peripheral Aerobic Blood Culture - Preliminary No growth in 1 day 10/27/17 10:40 Blood - Peripheral Anaerobic Blood Culture - Preliminary No growth in 1 day 10/27/17 10:46 Blood - Peripheral Aerobic Blood Culture - Preliminary No growth in 1 day 10/27/17 10:46 Blood - Peripheral Anaerobic Blood Culture - Preliminary No growth in 1 day 10/23/17 12:57 Blood - Peripheral Aerobic Blood Culture - Final No growth in 5 days 10/23/17 12:57 Blood - Peripheral Anaerobic Blood Culture - Final No growth in 5 days 10/23/17 13:03 Blood - Peripheral Aerobic Blood Culture - Final No growth in 5 days 10/23/17 13:03 Blood - Peripheral Anaerobic Blood Culture - Final No growth in 5 days - Procedures NONE Assessment and Plan - Assessment (1) History of CVA with residual deficit Code(s): I69.30 - Unspecified sequelae of cerebral infarction Status: Acute (2) Hypoglycemia Code(s): E16.2 - Hypoglycemia, unspecified Status: Acute (3) Acute hypokalemia Code(s): E87.6 - Hypokalemia Status: Acute (4) Diabetes Code(s): E11.9 - Type 2 diabetes mellitus without complications Status: Acute - Plan 62-year-old male admitted secondary to hypoglycemia with acute hypokalemia No further fevers overnight. Urinalysis, chest x-ray, and blood cultures ordered. No positive cultures thus far, urinalysis is within normal limits. Chest x-ray shows patchy left lower lobe infiltrate which may be chronic and unlikely bacterial given his coverage of cefepime and vancomycin. Continue to monitor fever pattern. Continue on vancomycin and cefepime. Continue Diflucan. Insulins adjusted for better control of blood sugars. Potassium replacements continued. Hypokalemia Continue monitoring and replace as needed Not yet stable Stability needed prior to discharge Acute hypoglycemia Resolved D5 IV has been discontinued Follow blood sugars Resume treatment at lower doses once blood sugars stabilize Encephalopathy Possible underlying dementia Improving Supportive care Hypertension Continue baseline treatment Follow blood pressures Adjust treatments as needed Hyperlipidemia Continue present treatment Follow as an outpatient Diabetes mellitus type 2 Follow blood sugars Insulin sliding scale Diabetic diet NPH provided as an additional treatment today Hx of CVA No acute changes follow clinically DVT Prophylaxis SCDs (4) Diabetes Qualifiers: Diabetes mellitus type: type 2 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
[2017-10-29] MEDS: Acetaminophen 325 MG Tablet PO PRN (05:03)
[2017-10-29 06:29] LABS: Anion Gap 9 meq/L (5-15); Aspartate Aminotransferase 67 U/L (15-37); Blood Urea Nitrogen 22 mg/dL (7-18); Calcium 8.4 mg/dL (8.5-10.1); Carbon Dioxide 27.2 meq/L (21.0-32.0); Chloride 100 meq/L (98-107); Glomerular Filtration Rate 66 mL/min (>89); Glucose,Random 142 mg/dL (74-106); Magnesium 2.4 mg/dL (1.5-2.5); Sodium 136 meq/L (136-145)
[2017-10-29 06:30] LABS: Baso # (Auto) 0.1 th/mm3 (0.0-0.2); Baso % (Auto) 0.3 % (0.0-2.0); Eos # (Auto) 0.1 th/mm3 (0.0-0.4); Eos % (Auto) 0.4 % (0.0-4.0); Hematocrit 39.6 % (39.0-51.0); Hemoglobin 12.9 gm/dL (13.0-17.0); Lymph # (Auto) 1.7 th/mm3 (1.0-4.8); Lymph % (Auto) 6.8 % (9.0-44.0); Mean Corpuscular HGB Conc 32.6 % (32.0-36.0); Mean Corpuscular Hemoglobin 30.3 pg (27.0-34.0); Mean Corpuscular Volume 93.1 fL (80.0-100.0); Mean Platelet Volume 8.7 fL (7.0-11.0); Mono # (Auto) 1.3 th/mm3 (0.0-0.9); Mono % (Auto) 5.3 % (0.0-8.0); Neut # (Auto) 21.6 th/mm3 (1.8-7.7); Neut % (Auto) 87.2 % (16.0-70.0); Platelet Count 240 th/mm3 (150-450); Red Blood Count 4.25 mil/mm3 (4.50-5.90); Red Cell Distribution Width 14.6 % (11.6-17.2); White Blood Count 24.8 th/mm3 (4.0-11.0)
[2017-10-29 06:32] LABS: Alanine Aminotransferase 54 U/L (12-78); Alkaline Phosphatase 109 U/L (45-117); Phosphorus 2.8 mg/dL (2.5-4.9); Total Protein 7.5 g/dL (6.4-8.2)
[2017-10-29 06:41] LABS: Potassium 3.9 meq/L (3.5-5.1)
[2017-10-29] MEDS: Lactobacillus Acidophilus/L. Spores Tablet PO SCH ×3 (08:22→18:49)
[2017-10-29] MEDS: Insulin NovoLOG Aspart Correctional Sugar Inj SQ SCH ×4 (08:22→21:57)
[2017-10-29] MEDS: Metoprolol Tartrate 50 MG Tablet PO SCH (08:23)
[2017-10-29] MEDS: Senna/Docusate Sodium 8.6/50 MG Tablet PO SCH ×2 (08:23→20:37)
[2017-10-29] MEDS: Vancomycin Inj 1,500 MG in Sodium Chlor 0.9% Inj 500 ML IV.SIG SCH (09:30)
--- NOTE | 2017-10-29 11:46 | P.PNIM ---
Subjective Interval history: Fevers have occurred again overnight. Potassium level and blood sugars show improvement today. No new complaints from the patient. Physical Exam Vital signs: Vital Signs 10/28/17 12:00 10/28/17 16:00 10/28/17 20:00 Temperature 97.9 F 98.3 F 99.1 F Pulse Rate 89 85 97 H Respiratory Rate 20 20 20 Blood Pressure 134/81 154/81 H 174/84 H Pulse Oximetry 96 95 92 L 10/29/17 00:00 10/29/17 04:00 10/29/17 08:00 Temperature 98.3 F 101.3 F H 98.4 F Pulse Rate 90 94 H 86 Respiratory Rate 18 18 16 Blood Pressure 149/79 H 146/71 H 150/78 H Pulse Oximetry 97 97 97 Intake & Output 10/28/17 10/29/17 10/29/17 18:59 06:59 18:59 Intake Total 1295 / 1295 855 / 855 515 / 515 Output Total 1700 / 1700 1200 / 1200 Balance -405 / -405 -345 / -345 515 / 515 Intake: IV 815 / 815 615 / 615 515 / 515 Maxipime Inj 1,000 MG In NS Inj 100 / 100 100 / 100 100 ML @ 200 mls/hr IV.SIG Q12H [facility] Rx#:[id number] Diflucan 400 mg Premix Bag 200 200 / 200 ML @ 100 mls/hr IV.SIG Q24H [facility] Rx#:[id number] Vancomycin Inj 1,500 MG In NS 515 / 515 515 / 515 515 / 515 Inj 500 ML @ 250 mls/hr IV.SIG Q12H [facility] Rx#:[id number] Oral 480 / 480 240 / 240 Output: Urine 1700 / 1700 1200 / 1200 Other: # Voids 4 Date of Last Bowel Movement 10/27/17 10/28/17 # Bowel Movements 1 Narrative: GENERAL: NAD, A&Ox2 HEAD: Normocephalic. NECK: Supple, trachea midline. No lymphadenopathy. EYES: No scleral icterus. No injection or drainage. CARDIOVASCULAR: Regular rate and rhythm without murmurs, gallops, or rubs. RESPIRATORY: Breath sounds equal bilaterally. No accessory muscle use. GASTROINTESTINAL: Abdomen soft, non-tender, nondistended. MUSCULOSKELETAL: No cyanosis, or edema. SKIN: Warm and dry. NEURO: No focal neurological deficits. Results - Labs CBC & Chem 7: 10/29/17 05:45 10/29/17 05:45 Laboratory Results - last 24 hr 10/28/17 10/28/17 10/28/17 11:15 12:25 20:57 WBC RBC Hgb Hct MCV MCH MCHC RDW Plt Count MPV Neut % (Auto) Lymph % (Auto) [place] % (Auto) Eos % (Auto) Baso % (Auto) Neut # (Auto) Lymph # (Auto) [place] # (Auto) Eos # (Auto) Baso # (Auto) WBC Differential Differential Comment Hematology Comments Sodium Potassium 3.5 Chloride Carbon Dioxide Anion Gap BUN Creatinine Estimated GFR POC Glucose 306 H 335 H Random Glucose Calcium Phosphorus Magnesium Total Bilirubin AST ALT Alkaline Phosphatase Total Protein Albumin 10/29/17 10/29/17 10/29/17 05:45 05:45 07:45 WBC 24.8 H RBC 4.25 L Hgb 12.9 L Hct 39.6 MCV 93.1 MCH 30.3 MCHC 32.6 RDW 14.6 Plt Count 240 MPV 8.7 Neut % (Auto) 87.2 H Lymph % (Auto) 6.8 L [place] % (Auto) 5.3 Eos % (Auto) 0.4 Baso % (Auto) 0.3 Neut # (Auto) 21.6 H Lymph # (Auto) 1.7 [place] # (Auto) 1.3 H Eos # (Auto) 0.1 Baso # (Auto) 0.1 WBC Differential . Differential Comment Auto diff final Hematology Comments Sodium 136 Potassium 3.9 Chloride 100 Carbon Dioxide 27.2 Anion Gap 9 BUN 22 H Creatinine 1.33 H Estimated GFR 66 L POC Glucose 160 H Random Glucose 142 H Calcium 8.4 L Phosphorus 2.8 Magnesium 2.4 Total Bilirubin 0.8 AST 67 H ALT 54 Alkaline Phosphatase 109 Total Protein 7.5 Albumin 2.0 L Microbiology 10/27/17 10:40 Blood - Peripheral Aerobic Blood Culture - Preliminary No growth in 2 days 10/27/17 10:40 Blood - Peripheral Anaerobic Blood Culture - Preliminary No growth in 2 days 10/27/17 10:46 Blood - Peripheral Aerobic Blood Culture - Preliminary No growth in 2 days 10/27/17 10:46 Blood - Peripheral Anaerobic Blood Culture - Preliminary No growth in 2 days 10/23/17 12:57 Blood - Peripheral Aerobic Blood Culture - Final No growth in 5 days 10/23/17 12:57 Blood - Peripheral Anaerobic Blood Culture - Final No growth in 5 days 10/23/17 13:03 Blood - Peripheral Aerobic Blood Culture - Final No growth in 5 days 10/23/17 13:03 Blood - Peripheral Anaerobic Blood Culture - Final No growth in 5 days - Procedures NONE Assessment and Plan - Assessment (1) History of CVA with residual deficit Code(s): I69.30 - Unspecified sequelae of cerebral infarction Status: Acute (2) Hypoglycemia Code(s): E16.2 - Hypoglycemia, unspecified Status: Acute (3) Acute hypokalemia Code(s): E87.6 - Hypokalemia Status: Acute (4) Diabetes Code(s): E11.9 - Type 2 diabetes mellitus without complications Status: Acute - Plan 62-year-old male admitted secondary to hypoglycemia with acute hypokalemia Fever occurred again overnight. Blood cultures negative thus far from last fever. Continue to follow potassium and blood sugars for stability. Hypokalemia Continue monitoring and replace as needed Not yet stable Stability needed prior to discharge Acute hypoglycemia Resolved D5 IV has been discontinued Follow blood sugars Resume treatment at lower doses once blood sugars stabilize Encephalopathy Possible underlying dementia Improving Supportive care Hypertension Continue baseline treatment Follow blood pressures Adjust treatments as needed Hyperlipidemia Continue present treatment Follow as an outpatient Diabetes mellitus type 2 Follow blood sugars Insulin sliding scale Diabetic diet NPH provided as an additional treatment today Hx of CVA No acute changes follow clinically DVT Prophylaxis SCDs (4) Diabetes Qualifiers: Diabetes mellitus type: type 2 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
[2017-10-29] MEDS: Vancomycin Inj 1,250 MG in Sodium Chlor 0.9% Inj 250 ML IV.SIG SCH (21:48)
[2017-10-30 08:00] LABS: Baso % (Auto) 0.2 % (0.0-2.0); Eos # (Auto) 0.1 th/mm3 (0.0-0.4); Eos % (Auto) 0.5 % (0.0-4.0); Hematocrit 38.9 % (39.0-51.0); Lymph # (Auto) 2.1 th/mm3 (1.0-4.8); Mean Corpuscular HGB Conc 33.5 % (32.0-36.0); Mean Corpuscular Hemoglobin 30.5 pg (27.0-34.0); Mean Corpuscular Volume 91.1 fL (80.0-100.0); Mean Platelet Volume 8.1 fL (7.0-11.0); Mono # (Auto) 1.4 th/mm3 (0.0-0.9); Mono % (Auto) 6.8 % (0.0-8.0); Neut # (Auto) 17.3 th/mm3 (1.8-7.7); Neut % (Auto) 82.5 % (16.0-70.0); Platelet Count 288 th/mm3 (150-450); Red Blood Count 4.27 mil/mm3 (4.50-5.90); Red Cell Distribution Width 14.7 % (11.6-17.2)
[2017-10-30 08:13] LABS: Alanine Aminotransferase 55 U/L (12-78); Anion Gap 9 meq/L (5-15); Aspartate Aminotransferase 50 U/L (15-37); Blood Urea Nitrogen 21 mg/dL (7-18); Calcium 8.8 mg/dL (8.5-10.1); Carbon Dioxide 31.7 meq/L (21.0-32.0); Chloride 99 meq/L (98-107); Glomerular Filtration Rate 73 mL/min (>89); Glucose,Random 111 mg/dL (74-106); Potassium 3.3 meq/L (3.5-5.1); Sodium 140 meq/L (136-145)
[2017-10-30 08:15] LABS: Alkaline Phosphatase 103 U/L (45-117); Total Protein 7.6 g/dL (6.4-8.2)
[2017-10-30] MEDS: Lactobacillus Acidophilus/L. Spores Tablet PO SCH ×3 (09:21→18:04)
[2017-10-30] MEDS: Metoprolol Tartrate 50 MG Tablet PO SCH (09:21)
[2017-10-30] MEDS: Senna/Docusate Sodium 8.6/50 MG Tablet PO SCH ×2 (09:22→22:14)
[2017-10-30] MEDS: Insulin NovoLOG Aspart Correctional Sugar Inj SQ SCH ×4 (09:22→22:25)
[2017-10-30] MEDS: Vancomycin Inj 1,250 MG in Sodium Chlor 0.9% Inj 250 ML IV.SIG SCH ×2 (10:28→22:13)
--- NOTE | 2017-10-30 11:19 | P.PNIM ---
Subjective Interval history: Reason potassium improved. Blood cultures are negative at 48 hours, will monitor till 72 hours. No recurrence of fever last night. Physical Exam Vital signs: Vital Signs 10/29/17 12:00 10/29/17 16:00 10/29/17 20:00 Temperature 98.2 F 98.0 F 98.3 F Pulse Rate 82 85 86 Respiratory Rate 18 18 20 Blood Pressure 162/82 H 149/73 H 149/72 H Pulse Oximetry 98 98 97 10/30/17 00:00 10/30/17 04:00 Temperature 98.4 F 98.1 F Pulse Rate 84 89 Respiratory Rate 20 20 Blood Pressure 145/95 H 132/77 Pulse Oximetry 99 97 Intake & Output 10/29/17 10/30/17 10/30/17 18:59 06:59 18:59 Intake Total 1535 / 1535 482.5 / 482.5 Output Total 1300 / 1300 1200 / 1200 Balance 235 / 235 -717.5 / -717.5 Intake: IV 815 / 815 362.5 / 362.5 Maxipime Inj 1,000 MG In NS Inj 100 / 100 100 / 100 100 ML @ 200 mls/hr IV.SIG Q12H [facility] Rx#:[id number] Diflucan 400 mg Premix Bag 200 200 / 200 ML @ 100 mls/hr IV.SIG Q24H [facility] Rx#:[id number] Vancomycin Inj 1,250 MG In NS 262.5 / 262.5 Inj 250 ML @ 262.5 mls/hr IV. SIG Q12H [facility] Rx#:[id number] Vancomycin Inj 1,500 MG In NS 515 / 515 Inj 500 ML @ 250 mls/hr IV.SIG Q12H [facility] Rx#:[id number] Oral 720 / 720 120 / 120 Output: Urine 1300 / 1300 1200 / 1200 Other: Date of Last Bowel Movement 10/28/17 Narrative: GENERAL: NAD, A&Ox2 HEAD: Normocephalic. NECK: Supple, trachea midline. No lymphadenopathy. EYES: No scleral icterus. No injection or drainage. CARDIOVASCULAR: Regular rate and rhythm without murmurs, gallops, or rubs. RESPIRATORY: Breath sounds equal bilaterally. No accessory muscle use. GASTROINTESTINAL: Abdomen soft, non-tender, nondistended. MUSCULOSKELETAL: No cyanosis, or edema. SKIN: Warm and dry. NEURO: No focal neurological deficits. Results - Labs CBC & Chem 7: 10/30/17 07:10 10/30/17 07:10 Laboratory Results - last 24 hr 10/29/17 10/29/17 10/30/17 12:21 17:37 07:10 WBC 21.0 H RBC 4.27 L Hgb 13.0 Hct 38.9 L MCV 91.1 MCH 30.5 MCHC 33.5 RDW 14.7 Plt Count 288 MPV 8.1 Neut % (Auto) 82.5 H Lymph % (Auto) 10.0 [place] % (Auto) 6.8 Eos % (Auto) 0.5 Baso % (Auto) 0.2 Neut # (Auto) 17.3 H Lymph # (Auto) 2.1 [place] # (Auto) 1.4 H Eos # (Auto) 0.1 Baso # (Auto) 0.0 WBC Differential . Differential Comment Auto diff final Sodium Potassium Chloride Carbon Dioxide Anion Gap BUN Creatinine Estimated GFR POC Glucose 266 H 258 H Random Glucose Calcium Total Bilirubin AST ALT Alkaline Phosphatase Total Protein Albumin 10/30/17 10/30/17 07:10 08:25 WBC RBC Hgb Hct MCV MCH MCHC RDW Plt Count MPV Neut % (Auto) Lymph % (Auto) [place] % (Auto) Eos % (Auto) Baso % (Auto) Neut # (Auto) Lymph # (Auto) [place] # (Auto) Eos # (Auto) Baso # (Auto) WBC Differential Differential Comment Sodium 140 Potassium 3.3 L Chloride 99 Carbon Dioxide 31.7 Anion Gap 9 BUN 21 H Creatinine 1.22 Estimated GFR 73 L POC Glucose 119 H Random Glucose 111 H Calcium 8.8 Total Bilirubin 0.7 AST 50 H ALT 55 Alkaline Phosphatase 103 Total Protein 7.6 Albumin 2.0 L Microbiology 10/27/17 10:40 Blood - Peripheral Aerobic Blood Culture - Preliminary No growth in 3 days 10/27/17 10:40 Blood - Peripheral Anaerobic Blood Culture - Preliminary No growth in 3 days 10/27/17 10:46 Blood - Peripheral Aerobic Blood Culture - Preliminary No growth in 3 days 10/27/17 10:46 Blood - Peripheral Anaerobic Blood Culture - Preliminary No growth in 3 days - Procedures NONE Assessment and Plan - Assessment (1) History of CVA with residual deficit Code(s): I69.30 - Unspecified sequelae of cerebral infarction Status: Acute (2) Hypoglycemia Code(s): E16.2 - Hypoglycemia, unspecified Status: Acute (3) Acute hypokalemia Code(s): E87.6 - Hypokalemia Status: Acute (4) Diabetes Code(s): E11.9 - Type 2 diabetes mellitus without complications Status: Acute - Plan 62-year-old male admitted secondary to hypoglycemia with acute hypokalemia No further fevers overnight. Blood cultures negative thus far at 48 hours. continue monitoring blood sugars and potassium levels. Hypokalemia Continue monitoring and replace as needed Not yet stable Stability needed prior to discharge Acute hypoglycemia Resolved D5 IV has been discontinued Follow blood sugars Resume treatment at lower doses once blood sugars stabilize Encephalopathy Possible underlying dementia Improving Supportive care Hypertension Continue baseline treatment Follow blood pressures Adjust treatments as needed Hyperlipidemia Continue present treatment Follow as an outpatient Diabetes mellitus type 2 Follow blood sugars Insulin sliding scale Diabetic diet NPH provided as an additional treatment today Hx of CVA No acute changes follow clinically DVT Prophylaxis SCDs (4) Diabetes Qualifiers: Diabetes mellitus type: type 2 Diabetes mellitus assisted insulin use: 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
[2017-10-31] MEDS: Insulin NovoLOG Aspart Correctional Sugar Inj SQ SCH ×4 (08:13→20:42)
[2017-10-31 08:22] LABS: Baso # (Auto) 0.1 th/mm3 (0.0-0.2); Baso % (Auto) 0.3 % (0.0-2.0); Eos # (Auto) 0.1 th/mm3 (0.0-0.4); Eos % (Auto) 0.3 % (0.0-4.0); Hematocrit 39.9 % (39.0-51.0); Hemoglobin 13.3 gm/dL (13.0-17.0); Lymph % (Auto) 10.9 % (9.0-44.0); Mean Corpuscular HGB Conc 33.2 % (32.0-36.0); Mean Corpuscular Hemoglobin 30.6 pg (27.0-34.0); Mean Corpuscular Volume 92.1 fL (80.0-100.0); Mean Platelet Volume 8.3 fL (7.0-11.0); Mono # (Auto) 0.8 th/mm3 (0.0-0.9); Mono % (Auto) 4.4 % (0.0-8.0); Neut # (Auto) 15.3 th/mm3 (1.8-7.7); Neut % (Auto) 84.1 % (16.0-70.0); Platelet Count 316 th/mm3 (150-450); Red Blood Count 4.33 mil/mm3 (4.50-5.90); Red Cell Distribution Width 14.5 % (11.6-17.2); White Blood Count 18.2 th/mm3 (4.0-11.0)
[2017-10-31] MEDS: Senna/Docusate Sodium 8.6/50 MG Tablet PO SCH ×2 (09:23→20:43)
[2017-10-31] MEDS: Lactobacillus Acidophilus/L. Spores Tablet PO SCH ×3 (09:23→17:32)
[2017-10-31] MEDS: Metoprolol Tartrate 50 MG Tablet PO SCH (09:24)
[2017-10-31] MEDS ORDERED: Pharmacy Ordered Lab Info OTHER ONE (09:45)
[2017-10-31 11:28] LABS: Alanine Aminotransferase 59 U/L (12-78); Albumin 2.1 g/dL (3.4-5.0); Alkaline Phosphatase 102 U/L (45-117); Anion Gap 9 meq/L (5-15); Aspartate Aminotransferase 45 U/L (15-37); Blood Urea Nitrogen 21 mg/dL (7-18); Calcium 8.5 mg/dL (8.5-10.1); Carbon Dioxide 31.4 meq/L (21.0-32.0); Chloride 97 meq/L (98-107); Glomerular Filtration Rate 68 mL/min (>89); Glucose,Random 224 mg/dL (74-106); Potassium 3.6 meq/L (3.5-5.1); Sodium 137 meq/L (136-145); Total Protein 8.1 g/dL (6.4-8.2); Vancomycin,Trough 23.4 mcg/mL (5.0-10.0)
[2017-10-31] MEDS: Vancomycin Inj 1,250 MG in Sodium Chlor 0.9% Inj 250 ML IV.SIG SCH (11:38)
--- NOTE | 2017-10-31 12:11 | P.PNIM ---
Subjective Interval history: Patient with expressive aphasia, he does not appear to be in any acute distress. Physical Exam Vital signs: Vital Signs 10/30/17 16:00 10/30/17 20:00 10/31/17 00:00 Temperature 97.5 F L 98.6 F Pulse Rate 78 89 85 Respiratory Rate 17 20 Blood Pressure 151/78 H 142/72 H Pulse Oximetry 98 100 10/31/17 04:00 10/31/17 08:00 Temperature 98.3 F 97.2 F L Pulse Rate 82 90 Respiratory Rate 18 21 Blood Pressure 131/78 136/78 Pulse Oximetry 96 97 Intake & Output 10/30/17 10/31/17 10/31/17 18:59 06:59 18:59 Intake Total 1282.5 / 1282.5 1342.5 / 1342.5 Output Total 1050 / 1050 1350 / 1350 Balance 232.5 / 232.5 -7.5 / -7.5 Weight 69.2 kg Intake: IV 562.5 / 562.5 362.5 / 362.5 Maxipime Inj 1,000 MG In NS Inj 100 / 100 100 / 100 100 ML @ 200 mls/hr IV.SIG Q12H SOLO Rx#:[id number] Diflucan 400 mg Premix Bag 200 200 / 200 ML @ 100 mls/hr IV.SIG Q24H SOLO Rx#:[id number] Vancomycin Inj 1,250 MG In NS 262.5 / 262.5 262.5 / 262.5 Inj 250 ML @ 262.5 mls/hr IV. SIG Q12H SOLO Rx#:[id number] Oral 720 / 720 980 / 980 Output: Urine 1050 / 1050 1350 / 1350 Other: Date of Last Bowel Movement 10/30/17 10/30/17 # Bowel Movements 0 1 Narrative: General patient in no acute distress HEENT extraocular movements are intact, clear oropharyngeal mucosa, no JVD Cardiovascular S1-S2 audible Respiratory clear to auscultation bilaterally Abdomen soft, nontender, nondistended, normal bowel sounds Extremities contracture of the right upper extremity, no edema, no erythema, swelling, or signs of infections on physical examination of the extremities or sacral region. Neuro patient has expressive aphasia 5 out of 5 strength in the left upper and left lower extremity 2 out of 5 strength of the right lower extremity 0 out of 5 strength of the right upper extremity. Sensation appears to be intact bilaterally Results - Labs CBC & Chem 7: 10/31/17 07:00 10/31/17 10:22 Laboratory Results - last 24 hr 10/30/17 10/30/17 10/30/17 13:16 18:06 22:13 WBC RBC Hgb Hct MCV MCH MCHC RDW Plt Count MPV Neut % (Auto) Lymph % (Auto) [place] % (Auto) Eos % (Auto) Baso % (Auto) Neut # (Auto) Lymph # (Auto) [place] # (Auto) Eos # (Auto) Baso # (Auto) WBC Differential Differential Comment Sodium Potassium Chloride Carbon Dioxide Anion Gap BUN Creatinine Estimated GFR POC Glucose 250 H 216 H 233 H Random Glucose Calcium Total Bilirubin AST ALT Alkaline Phosphatase Total Protein Albumin Vancomycin Trough 10/31/17 10/31/17 10/31/17 07:00 08:03 10:22 WBC 18.2 H RBC 4.33 L Hgb 13.3 Hct 39.9 MCV 92.1 MCH 30.6 MCHC 33.2 RDW 14.5 Plt Count 316 MPV 8.3 Neut % (Auto) 84.1 H Lymph % (Auto) 10.9 [place] % (Auto) 4.4 Eos % (Auto) 0.3 Baso % (Auto) 0.3 Neut # (Auto) 15.3 H Lymph # (Auto) 2.0 [place] # (Auto) 0.8 Eos # (Auto) 0.1 Baso # (Auto) 0.1 WBC Differential . Differential Comment Auto diff final Sodium 137 Potassium 3.6 Chloride 97 L Carbon Dioxide 31.4 Anion Gap 9 BUN 21 H Creatinine 1.29 Estimated GFR 68 L POC Glucose 133 H Random Glucose 224 H D Calcium 8.5 Total Bilirubin 0.6 AST 45 H ALT 59 Alkaline Phosphatase 102 Total Protein 8.1 Albumin 2.1 L Vancomycin Trough 23.4 H Microbiology 10/27/17 10:40 Blood - Peripheral Aerobic Blood Culture - Preliminary No growth in 4 days 10/27/17 10:40 Blood - Peripheral Anaerobic Blood Culture - Preliminary No growth in 4 days 10/27/17 10:46 Blood - Peripheral Aerobic Blood Culture - Preliminary No growth in 4 days 10/27/17 10:46 Blood - Peripheral Anaerobic Blood Culture - Preliminary No growth in 4 days - Procedures NONE Assessment and Plan - Assessment (1) History of CVA with residual deficit Code(s): I69.30 - Unspecified sequelae of cerebral infarction Status: Acute (2) Hypoglycemia Code(s): E16.2 - Hypoglycemia, unspecified Status: Acute (3) Acute hypokalemia Code(s): E87.6 - Hypokalemia Status: Acute (4) Diabetes Code(s): E11.9 - Type 2 diabetes mellitus without complications Status: Acute - Plan This patient is a 62-year-old -[place] male with a history of CVA with right-sided danisha paresis. The patient also has a diagnosis of diabetes and hypertension. He was admitted for acute hypoglycemia and acute encephalopathy likely due to the hypoglycemia episode. 1. Leukocytosis The patient had an elevated WBC count predominantly neutrophils. There are no signs of infection and he has been afebrile for 2 days. There was a documented febrile episode on 10/29/2017. Urinalysis is negative. I evaluated the patient and there are no signs of infections on the patient's skin. I will order a chest x-ray to evaluate for possible pneumonia. If no source of infection is found hematology will be consulted to evaluate the patient for leukocytosis. IV antibiotics will be stopped as there is no clear sign of infection at this time. 2. Acute hypoglycemia The patient has not had any episodes of hypoglycemia that I can see over the past couple of days. He will be continued on his current diabetes regimen and will it will be adjusted as needed. 3. Hypertension Continue current antihypertensives these medications will be adjusted as needed. 4. Dyslipidemia Continue current medications Heparin for DVT prophylaxis. 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
--- NOTE | 2017-10-31 14:37 | XR ---
EXAM DATE: 10/31/2017 2:33 PM EDT AGE/SEX: 62 years / Male INDICATIONS: Short of breath. CLINICAL DATA: This is the patient's subsequent encounter. Patient reports that signs and symptoms h ave been present for 1 week and indicates a pain score of Nonresponsive. MEDICAL/SURGICAL HISTORY: . Stroke. Diabetes. Hypertension. None. COMPARISON: [facility] – [place], CHEST 1V SINGLE AP, 10/27/2017. . FINDINGS: A single AP view of the chest demonstrates the lungs to be symmetrically aerated without evidence of mass, infiltrate or effusion. The cardiomediastinal contours are unremarkable. Osseous structures a re intact. CONCLUSION: Negative examination. Electronically signed by: Chase Lezama MD 10/31/2017 2:36 PM EDT
[2017-10-31] MEDS: Heparin - SQ 10,000 UNITS/ML Vial SQ SCH (20:42)
[2017-11-01 06:39] LABS: Baso % (Auto) 0.3 % (0.0-2.0); Eos # (Auto) 0.1 th/mm3 (0.0-0.4); Eos % (Auto) 0.3 % (0.0-4.0); Hematocrit 44.8 % (39.0-51.0); Hemoglobin 14.7 gm/dL (13.0-17.0); Lymph # (Auto) 1.9 th/mm3 (1.0-4.8); Lymph % (Auto) 11.5 % (9.0-44.0); Mean Corpuscular HGB Conc 32.8 % (32.0-36.0); Mean Corpuscular Hemoglobin 30.6 pg (27.0-34.0); Mean Corpuscular Volume 93.3 fL (80.0-100.0); Mean Platelet Volume 8.4 fL (7.0-11.0); Mono # (Auto) 0.7 th/mm3 (0.0-0.9); Mono % (Auto) 4.2 % (0.0-8.0); Neut # (Auto) 14.1 th/mm3 (1.8-7.7); Neut % (Auto) 83.7 % (16.0-70.0); Platelet Count 315 th/mm3 (150-450); Red Cell Distribution Width 14.9 % (11.6-17.2); White Blood Count 16.9 th/mm3 (4.0-11.0)
[2017-11-01] MEDS: Metoprolol Tartrate 50 MG Tablet PO SCH (08:28)
[2017-11-01] MEDS: Heparin - SQ 10,000 UNITS/ML Vial SQ SCH ×2 (08:28→20:46)
[2017-11-01] MEDS: Lactobacillus Acidophilus/L. Spores Tablet PO SCH ×3 (08:28→18:19)
[2017-11-01] MEDS: Insulin NovoLOG Aspart Correctional Sugar Inj SQ SCH ×4 (08:29→20:45)
[2017-11-01] MEDS: Senna/Docusate Sodium 8.6/50 MG Tablet PO SCH ×2 (08:29→20:45)
--- NOTE | 2017-11-01 15:52 | P.PNIM ---
Subjective Interval history: Patient with expressive aphasia, he does not appear to be in any acute distress. Physical Exam Vital signs: Vital Signs 10/31/17 16:00 10/31/17 20:00 10/31/17 23:22 Temperature 98.2 F 98 F 97.8 F Pulse Rate 80 96 H 90 Respiratory Rate 20 16 16 Blood Pressure 149/80 H 155/87 H 135/82 Pulse Oximetry 98 99 99 11/01/17 00:00 11/01/17 03:38 11/01/17 04:00 Temperature 97.8 F Pulse Rate 88 96 H 78 Respiratory Rate 16 Blood Pressure 140/82 Pulse Oximetry 99 11/01/17 08:00 11/01/17 12:01 Temperature 98.0 F 97.8 F Pulse Rate 94 H 84 Respiratory Rate 20 18 Blood Pressure 129/87 126/69 Pulse Oximetry 98 100 Intake & Output 10/31/17 11/01/17 11/01/17 18:59 06:59 18:59 Intake Total 464 / 464 500 / 500 Output Total 900 / 900 Balance -436 / -436 500 / 500 Weight 69.4 kg Intake: IV 104 / 104 Vancomycin Inj 1,250 MG In NS 104 / 104 Inj 250 ML @ 262.5 mls/hr IV. SIG Q12H SOLO Rx#:[id number] Oral 360 / 360 500 / 500 Output: Urine 900 / 900 Other: Date of Last Bowel Movement 10/31/17 Narrative: General patient in no acute distress HEENT extraocular movements are intact, clear oropharyngeal mucosa, no JVD Cardiovascular S1-S2 audible Respiratory clear to auscultation bilaterally Abdomen soft, nontender, nondistended, normal bowel sounds Extremities contracture of the right upper extremity, no edema, no erythema, swelling, or signs of infections on physical examination of the extremities or sacral region. Neuro patient has expressive aphasia 5 out of 5 strength in the left upper and left lower extremity 2 out of 5 strength of the right lower extremity 0 out of 5 strength of the right upper extremity. Sensation appears to be intact bilaterally Results - Labs CBC & Chem 7: 11/01/17 04:34 10/31/17 10:22 Laboratory Results - last 24 hr 10/31/17 10/31/17 11/01/17 16:48 20:20 04:34 WBC 16.9 H RBC 4.80 Hgb 14.7 Hct 44.8 MCV 93.3 MCH 30.6 MCHC 32.8 RDW 14.9 Plt Count 315 MPV 8.4 Prelim Diff (Auto) Slide review pending Neut % (Auto) 83.7 H Lymph % (Auto) 11.5 [place] % (Auto) 4.2 Eos % (Auto) 0.3 Baso % (Auto) 0.3 Neut # (Auto) 14.1 H Lymph # (Auto) 1.9 [place] # (Auto) 0.7 Eos # (Auto) 0.1 Baso # (Auto) 0.0 WBC Differential . Diff Scan Auto diff confirmed Differential Comment . POC Glucose 234 H 261 H 11/01/17 11/01/17 08:26 11:46 WBC RBC Hgb Hct MCV MCH MCHC RDW Plt Count MPV Prelim Diff (Auto) Neut % (Auto) Lymph % (Auto) [place] % (Auto) Eos % (Auto) Baso % (Auto) Neut # (Auto) Lymph # (Auto) [place] # (Auto) Eos # (Auto) Baso # (Auto) WBC Differential Diff Scan Differential Comment POC Glucose 121 H 242 H Microbiology 10/27/17 10:40 Blood - Peripheral Aerobic Blood Culture - Final No growth in 5 days 10/27/17 10:40 Blood - Peripheral Anaerobic Blood Culture - Final No growth in 5 days 10/27/17 10:46 Blood - Peripheral Aerobic Blood Culture - Final No growth in 5 days 10/27/17 10:46 Blood - Peripheral Anaerobic Blood Culture - Final No growth in 5 days - Procedures NONE Assessment and Plan - Assessment (1) History of CVA with residual deficit Code(s): I69.30 - Unspecified sequelae of cerebral infarction Status: Acute (2) Hypoglycemia Code(s): E16.2 - Hypoglycemia, unspecified Status: Acute (3) Acute hypokalemia Code(s): E87.6 - Hypokalemia Status: Acute (4) Diabetes Code(s): E11.9 - Type 2 diabetes mellitus without complications Status: Acute - Plan This patient is a 62-year-old -Aust[place] male with a history of CVA with right-sided danisha paresis. The patient also has a diagnosis of diabetes and hypertension. He was admitted for acute hypoglycemia and acute encephalopathy likely due to the hypoglycemia episode. 1. Leukocytosis The patient had an elevated WBC count predominantly neutrophils. There are no signs of infection and he has been afebrile for 2 days. There was a documented febrile episode on 10/29/2017. Urinalysis is negative. I evaluated the patient and there are no signs of infections on the patient's skin. Chest x-ray was ordered which did not show any evidence of pneumonia. His WBC count continues to show a downtrend. I will follow-up in a.m. CBC and renal panel. If the patient's leukocytosis continues to downtrend tomorrow he will be discharged tomorrow. 2. Acute hypoglycemia The patient has not had any episodes of hypoglycemia that I can see over the past couple of days. He will be continued on his current diabetes regimen and will it will be adjusted as needed. 3. Hypertension Continue current antihypertensives these medications will be adjusted as needed. 4. Dyslipidemia Continue current medications Heparin for DVT prophylaxis. 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
[2017-11-02 07:08] LABS: Baso % (Auto) 0.3 % (0.0-2.0); Eos # (Auto) 0.1 th/mm3 (0.0-0.4); Eos % (Auto) 0.5 % (0.0-4.0); Hematocrit 39.7 % (39.0-51.0); Hemoglobin 13.1 gm/dL (13.0-17.0); Lymph # (Auto) 2.2 th/mm3 (1.0-4.8); Mean Corpuscular Hemoglobin 30.3 pg (27.0-34.0); Mean Corpuscular Volume 91.7 fL (80.0-100.0); Mean Platelet Volume 8.5 fL (7.0-11.0); Mono # (Auto) 0.6 th/mm3 (0.0-0.9); Mono % (Auto) 3.8 % (0.0-8.0); Neut # (Auto) 11.7 th/mm3 (1.8-7.7); Neut % (Auto) 80.4 % (16.0-70.0); Platelet Count 366 th/mm3 (150-450); Red Blood Count 4.33 mil/mm3 (4.50-5.90); Red Cell Distribution Width 14.4 % (11.6-17.2); White Blood Count 14.6 th/mm3 (4.0-11.0)
[2017-11-02 07:28] LABS: Calcium 8.6 mg/dL (8.5-10.1); Carbon Dioxide 28.1 meq/L (21.0-32.0); Magnesium 2.5 mg/dL (1.5-2.5); Potassium 4.7 meq/L (3.5-5.1)
--- NOTE | 2017-11-02 08:13 | P.PNIM ---
Subjective Interval history: Patient is laying in bed, appears to be comfortable. Expressive aphasia is noted. He does not have any other complaints. Physical Exam Vital signs: Vital Signs 11/01/17 12:01 11/01/17 16:00 11/01/17 20:00 Temperature 97.8 F 98 F 98.5 F Pulse Rate 84 92 H 100 H Respiratory Rate 18 18 17 Blood Pressure 126/69 123/70 120/77 Pulse Oximetry 100 99 95 11/02/17 00:00 11/02/17 04:00 11/02/17 08:00 Temperature 98.1 F 97.8 F 96.6 F L Pulse Rate 98 H 94 H 93 H Respiratory Rate 18 19 16 Blood Pressure 145/71 H 147/83 H 133/78 Pulse Oximetry 96 97 97 Intake & Output 11/01/17 11/02/17 11/02/17 18:59 06:59 18:59 Intake Total 0 / 0 Output Total 350 / 350 Balance -350 / -350 Weight 69.9 kg Intake: Oral 0 / 0 Output: Urine 350 / 350 Other: Date of Last Bowel Movement 11/01/17 Narrative: General patient in no acute distress HEENT extraocular movements are intact, dry oral mucosa Cardiovascular S1-S2 audible Respiratory clear to auscultation bilaterally Abdomen soft, nontender, nondistended, normal bowel sounds Extremities contracture of the right upper extremity, no edema, no erythema, swelling, or signs of infections on physical examination of the extremities or sacral region. Neuro patient has expressive aphasia 5 out of 5 strength in the left upper and left lower extremity 2 out of 5 strength of the right lower extremity 0 out of 5 strength of the right upper extremity. Sensation appears to be intact bilaterally Results - Labs CBC & Chem 7: 11/02/17 03:59 11/02/17 03:59 Laboratory Results - last 24 hr 11/01/17 11/01/17 11/01/17 04:34 08:26 11:46 WBC RBC Hgb Hct MCV MCH MCHC RDW Plt Count MPV Neut % (Auto) Lymph % (Auto) [place] % (Auto) Eos % (Auto) Baso % (Auto) Neut # (Auto) Lymph # (Auto) [place] # (Auto) Eos # (Auto) Baso # (Auto) WBC Differential . Diff Scan Auto diff confirmed Differential Comment Sodium Potassium Chloride Carbon Dioxide Anion Gap BUN Creatinine Estimated GFR POC Glucose 121 H 242 H Random Glucose Calcium Magnesium 11/01/17 11/02/17 11/02/17 16:18 03:59 03:59 WBC 14.6 H RBC 4.33 L Hgb 13.1 Hct 39.7 MCV 91.7 MCH 30.3 MCHC 33.0 RDW 14.4 Plt Count 366 MPV 8.5 Neut % (Auto) 80.4 H Lymph % (Auto) 15.0 [place] % (Auto) 3.8 Eos % (Auto) 0.5 Baso % (Auto) 0.3 Neut # (Auto) 11.7 H Lymph # (Auto) 2.2 [place] # (Auto) 0.6 Eos # (Auto) 0.1 Baso # (Auto) 0.0 WBC Differential . Diff Scan Differential Comment Auto diff final Sodium 135 L Potassium 4.7 D Chloride 99 Carbon Dioxide 28.1 Anion Gap 8 BUN 31 H Creatinine 1.43 H Estimated GFR 61 L POC Glucose 225 H Random Glucose 206 H Calcium 8.6 Magnesium 2.5 Microbiology 10/27/17 10:40 Blood - Peripheral Aerobic Blood Culture - Final No growth in 5 days 10/27/17 10:40 Blood - Peripheral Anaerobic Blood Culture - Final No growth in 5 days 10/27/17 10:46 Blood - Peripheral Aerobic Blood Culture - Final No growth in 5 days 10/27/17 10:46 Blood - Peripheral Anaerobic Blood Culture - Final No growth in 5 days - Procedures NONE Assessment and Plan - Assessment (1) History of CVA with residual deficit Code(s): I69.30 - Unspecified sequelae of cerebral infarction Status: Acute (2) Hypoglycemia Code(s): E16.2 - Hypoglycemia, unspecified Status: Acute (3) Acute hypokalemia Code(s): E87.6 - Hypokalemia Status: Acute (4) Diabetes Code(s): E11.9 - Type 2 diabetes mellitus without complications Status: Acute - Plan This patient is a 62-year-old -Ira[place] male with a history of CVA with right-sided danisha paresis. The patient also has a diagnosis of diabetes and hypertension. He was admitted for acute hypoglycemia and acute encephalopathy likely due to the hypoglycemia episode. 1. Acute kidney injury likely prerenal The patient has a history of CVA and appears to be having a decrease in p.o. intake. His mouth appears dry on physical examination. He will be started on normal saline IV fluids. Repeat a renal panel later today or tomorrow a.m. to evaluate his serum creatinine. His serum creatinine today is 1.43 with a baseline of 0.9. 2. Leukocytosis The patient had an elevated WBC count. There are no signs of infection and he has been afebrile for 3 days. I evaluated the patient and there are no signs of infections on the patient's skin. Chest x-ray was ordered which did not show any evidence of pneumonia. His WBC count continues to show a downtrend from 28 to 16 today. I stop the patient's IV antibiotics 2 days ago and his leukocytosis continues to resolve. I do not suspect any acute infection at this point. If his serum creatinine improves the patient will likely be transferred to a rehab facility today. 2. Acute hypoglycemia The patient has not had any episodes of hypoglycemia that I can see over the past couple of days. He will be continued on his current diabetes regimen and will it will be adjusted as needed. 3. Hypertension Continue current antihypertensives these medications will be adjusted as needed. 4. Dyslipidemia Continue current medications Heparin for DVT prophylaxis. 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
[2017-11-02] MEDS: Metoprolol Tartrate 50 MG Tablet PO SCH (09:57)
[2017-11-02] MEDS: Lactobacillus Acidophilus/L. Spores Tablet PO SCH ×3 (09:57→17:53)
[2017-11-02] MEDS: Senna/Docusate Sodium 8.6/50 MG Tablet PO SCH ×2 (09:58→20:17)
[2017-11-02] MEDS: Heparin - SQ 10,000 UNITS/ML Vial SQ SCH ×2 (09:58→20:17)
[2017-11-02] MEDS: Sod Chloride 0.9% Inj 1,000 ML IV.CONT SCH ×3 (09:59→21:14)
[2017-11-02] MEDS: Insulin NovoLOG Aspart Correctional Sugar Inj SQ SCH ×4 (09:59→20:18)
[2017-11-03] MEDS: Lactobacillus Acidophilus/L. Spores Tablet PO SCH ×2 (09:25→13:08)
[2017-11-03] MEDS: Metoprolol Tartrate 50 MG Tablet PO SCH (09:25)
[2017-11-03] MEDS: Senna/Docusate Sodium 8.6/50 MG Tablet PO SCH (09:26)
[2017-11-03] MEDS: Insulin NovoLOG Aspart Correctional Sugar Inj SQ SCH ×3 (09:27→17:35)
[2017-11-03] MEDS: Heparin - SQ 10,000 UNITS/ML Vial SQ SCH (09:27)
[2017-11-03] MEDS: Sod Chloride 0.9% Inj 1,000 ML IV.CONT SCH (09:32)
[2017-11-03 11:40] VITALS: RESP 16
[2017-11-03 14:15] LABS: Calcium 8.5 mg/dL (8.5-10.1); Carbon Dioxide 27.5 meq/L (21.0-32.0); Magnesium 2.3 mg/dL (1.5-2.5); Potassium 4.7 meq/L (3.5-5.1)
[2017-11-03 17:25] VITALS: BP 134/78; TEMP 98.4; O2SAT 99
[2017-11-03 19:36] VITALS: PULSE 95
[2017-11-04] MEDS ORDERED: hydroCHLOROthiazide 25 MG Tablet PO SCH (09:00)
--- NOTE | 2017-11-27 08:56 | P.DS ---
Date of admission: 10/22/17 10:38 Primary care physician: Victorina Velazquez MD Brief History from admission: Mr. Russell is a 62 year old male. He has a diagnosis of diabetes mellitus type 2, hypertension, dyslipidemia, and a history of CVA. At baseline he may have some degree of dementia. He has a friend who helps doses Lantus. He has had a previous hypoglycemic episode recently and has a repeat hypoglycemic episode today. The patient was sent to our facility for hypoglycemia possibly due to Lantus overdose. He has been taking Lantus 80 units subcu daily as per documentation which is the suspected etiology for the patient's hypoglycemia. DS: Diagnosis - Discharge Diagnosis (1) History of CVA with residual deficit Status: Acute (2) Hypoglycemia Status: Acute (3) Acute hypokalemia Status: Acute (4) Diabetes Status: Acute DS: Medications - Discharge Medications Prescriptions: insulin NPH isoph U-100 human [Novolin N NPH U-100 Insulin] 18 units SUB-Q DAILY @1800 #10 ml insulin NPH isoph U-100 human [Novolin N NPH U-100 Insulin] 28 units SUB-Q DAILY @0800 #10 ml DS: Summary Hospital Course: This patient is a 62-year-old -[place]ub[place] male with a history of CVA with right-sided danisha paresis. The patient also has a diagnosis of diabetes and hypertension. He was admitted for acute hypoglycemia and acute encephalopathy likely due to the hypoglycemia episode from a high dose of Lantus. 1. Acute encephalopathy secondary to hypoglycemia It is unclear how much Lantus the patient was taking at the senior living facility however as per documentation he was taking 80 units of Lantus twice daily. Initially the patient was started on IV fluids with D5W and his insulin was held. We monitored the patient's blood sugars closely while in-house and his insulin regimen was adjusted once his blood sugar stabilized. He will be discharged on 28 units of NPH in the morning and 18 units of NPH at night. His acute encephalopathy resolved we believe his acute encephalopathy was due to the hypoglycemia. 2. Acute kidney injury likely prerenal Patient was also having poor p.o. intake which likely contributed to the hypoglycemia and acute kidney injury. Serum creatinine peaked at 1.5 and has now normalized after the initiation of IV fluids. 3. Leukocytosis The patient had an elevated WBC count. There are no signs of infection and he has been afebrile for 4 days. I evaluated the patient and there are no signs of infections on the patient's skin. Chest x-ray was ordered which did not show any evidence of pneumonia. His WBC count continues to show a downtrend from 28 to 16 today. I stop the patient's IV antibiotics 3 days ago and his leukocytosis continues to resolve. I do not suspect any acute infection at this point. He will be transferred back to the senior living facility today. 3. Hypertension Continue current antihypertensives these medications can be adjusted as needed. - Time Spent with Patient Total time spent providing and/or coordinating discharge services: Greater than 30 minutes - Quality: VTE Deep Vein Thrombosis/Pulmonary Embolism Present on Admission: No Exam Narrative: General patient in no acute distress HEENT extraocular movements are intact, dry oral mucosa Cardiovascular S1-S2 audible Respiratory clear to auscultation bilaterally Abdomen soft, nontender, nondistended, normal bowel sounds Extremities contracture of the right upper extremity, no edema, no erythema, swelling, or signs of infections on physical examination of the extremities or sacral region. Neuro patient has expressive aphasia 5 out of 5 strength in the left upper and left lower extremity 2 out of 5 strength of the right lower extremity 0 out of 5 strength of the right upper extremity. Sensation appears to be intact bilaterally Results Procedures completed during hospitalization: NONE - Impressions ITS Impressions Head CT 10/20/17 15:59 CONCLUSION: 1. Large area of old left-sided infarct involving the left parietal lobe with Wallerian degeneration present within the temporal lobe and left cerebral peduncle. No acute abnormality is seen. . Chest X-Ray 10/31/17 00:00 CONCLUSION: Negative examination. Discharge Plan - Discharge Disposition Patient Disposition: Discharge to SNF - Discharge Condition Condition: Fair - Discharge Order Discharge Orders: Discharge Order (Routine); Ordered 11/03/17 Ordered By: Jordin Martinez - Physicians Team Primary Care Provider: Victorina Velazquez Attending Provider: Jordin Martinez Other Providers: [employer] ; [facility],Agency ; [facility],Agency
== END 2017-11-03 17:28 ==
LOC: NEDA 14:54 → NEPC 14:54 → NEPFCDU 19:10 → N04 10-22 18:44
PROVIDERS: ADMIT Hospitalist; ATTEND Hospitalist